=== PATIENT | female | born 1980 | race Caucasian/White ===

== ENCOUNTER → 2023-12-07 06:28 | Outpatient (REF) | payer OTHER, SELFPAY | LOC: HWWDC 06:28 | PROVIDERS: ATTENDING PHYSICIAN Physician Assistant Medical | DX: Z12.31 Encounter for screening mammogram for malignant neoplasm of breast (principal) | CPT/HCPCS: 77063; 77067 ==

== ENCOUNTER → 2024-12-07 06:45 | Outpatient (REF) | payer OTHER, SELFPAY | LOC: HWWDC 06:45 | PROVIDERS: ATTENDING PHYSICIAN Physician Assistant Medical | DX: Z12.31 Encounter for screening mammogram for malignant neoplasm of breast (principal) | CPT/HCPCS: 77063; 77067 ==

== ENCOUNTER 2024-12-24 11:13 | Emergency (ER) | payer OTHER, SELFPAY ==
[2024-12-24 11:19] VITALS: BP 145/80
[2024-12-24 11:40] VITALS: BMI 33.2
--- NOTE | 2024-12-24 11:41 | ED.GENMED ---
History of Present Illness
General
Chief Complaint: Back Pain
Source: patient
Exam Limitations: none
Time Seen by Provider: 12/24/24 11:30
History of Present Illness
History of Present Illness:
44-year-old female presents complaining of worsening lower back pain that radiates down the right leg. She has been having pain since the beginning of this month. She was seen in urgent care, x-rays were performed which were negative. She was
initially placed on gabapentin and steroid however this did not help. She has been on her second round of steroid and is also taking muscle relaxers. She is also doing physical therapy without relief. The pain is mostly severe in the back and is
associated with right leg pain. She notes she is constipated but no incontinence of her stool or bladder. She notes some paresthesias to the right lateral leg but no perianal anesthesia. She is ambulatory. She did drive herself here. She is in
tears because of her pain
Phy Exam
Physical Exam
Physical Exam:
General: Well-appearing female in no acute respiratory distress
HEENT: Normal cephalic atraumatic
Heart: Regular rate and rhythm
Lungs: Clear no wheeze
Musculoskeletal exam: Patient is tender to the midline of the lower lumbar spine. She is ambulatory
Neurologic exam: Alert walking with a guarded gait. Bilateral patellar and Achilles reflexes 2+. Good strength to lower extremities bilaterally she has slight decrease sensation to the lateral aspect of the right thigh
Skin is warm no rash
Course
Orders/Labs/Results
Orders:
Orders
12/24/24 11:40
Ketorolac [Toradol] 30 mg IV NOW STA
diazePAM [Valium Injection] 5 mg IV NOW STA
Vital Signs
Initial and Last Documented VS:
Initial Vital Signs
Temp Pulse Resp BP Pulse Ox
98.4 F 84 18 145/80 97
12/24/24 11:19 12/24/24 11:19 12/24/24 11:19 12/24/24 11:19 12/24/24 11:19
Last Documented Vital Signs
Temp Pulse Resp BP Pulse Ox
98.4 F 84 18 145/80 97
12/24/24 11:19 12/24/24 11:19 12/24/24 11:19 12/24/24 11:19 12/24/24 11:43
MDM/Problems Addressed
Differential Diagnosis Includes:
Low back pain with pain radiating down the right leg. I suspect radiculopathy. She had negative x-rays done several weeks ago. No red flags to suggest cauda equina. No fever to suggest infectious source. Will try Valium and Toradol. No
emergent need for MRI at this time
*Pulse Oximetry
SaO2: 97
Oxygen Mode of Delivery: Room air
Patient hypoxic: no
*Critical Care Note
Total Time (30-74mins, 75-104mins- exclusive of procedures): Not Applicable
Update Note
Update Note:
Patient was given Toradol here and Valium and is doing better. She is amatory in the hallway. Suspect radiculopathy. She has an appoint with orthopedics in 3 days. Will prescribe medicine for her spasm and pain. Stable for discharge
ED Attending Note
-
Portions of this chart may have been created with voice recognition software.� Occasional wrong word or��sound alike� substitutions may have occurred due to the inherent limitations of voice recognition software.
Discharge Plan
Departure
Patient Disposition: Home (Routine Discharge)
Date of Disposition: 12/24/24
Time of Disposition: 13:29
Patient with high blood pressure during this ER visit?: No
Discharge Problem:
Acute lumbar radiculopathy
Instructions: Radiculopathy (DC)
Prescriptions:
New
diazepam [Valium] 5 mg tablet
5 mg PO TID PRN (Reason: muscle spasm) Qty: 10 0RF
hydrocodone-acetaminophen 5-325 mg tablet
1 tab PO TID PRN (Reason: Pain) Qty: 7 0RF
No Action
ucipzoqv-hin-szry fum-folic ac 1 EACH tablet
1 ea PO DAILY
Referrals:
Tracee Gomez PA-C [Family Provider, Family Practice]
Activity Restrictions/Additional Instructions:
Continue using warm compresses to the back. Use different muscle relaxer as prescribed. You may use prescribed pain medicine sparingly only as needed for severe pain. Follow-up with orthopedics as planned
Interventions
Interventions:
*Risk Screen - Suicide Last Done: 12/24/24 11:43
*General Assessment Last Done: 12/24/24 11:43
ED-Musculoskeletal Assessment Last Done: 12/24/24 11:43
Discharge Date and Time
Print Language: PORTUGUESE
[2024-12-24] MEDS: VALIUM INJECTION 5 MG IV (11:47)
[2024-12-24] MEDS: TORADOL 30 MG IV (11:47)
== END 2024-12-24 13:48 | disposition home or self-care (01) ==
LOC: EMR 11:13
PROVIDERS: EMERGENCY PHYSICIAN Emergency Medicine; FAMILY PHYSICIAN Physician Assistant Medical
DX: M54.16 Radiculopathy, lumbar region (principal)
CPT/HCPCS: 99284; 96374; 96375

== ENCOUNTER 2024-12-27 17:51 | Observation (INO) | payer OTHER, SELFPAY ==
[2024-12-27 09:51] VITALS: BP 159/83
[2024-12-27 10:23] VITALS: BMI 33.9
--- NOTE | 2024-12-27 10:36 | ED.GENMED ---
History of Present Illness
General
Chief Complaint: Bowel Problem
Source: patient
Time Seen by Provider: 12/27/24 10:21
History of Present Illness
History of Present Illness:
44-year-old female presents emergency room complaining of constipation. Has not had a bowel movement for a week. She first noticed constipation about 2 weeks ago. She has been experiencing exacerbation of low back pain with some tingling going
down her right leg to her knee. No focal weakness. No numbness or tingling in the lower part of her leg. She denies any numbness or paresthesias in the perineum. She is urinating normally. She has some abdominal discomfort as well as nausea.
No vomiting. She has had very decreased appetite due to the constipation.
Phy Exam
Physical Exam
Physical Exam:
General: Awake, Alert, Oriented X3. No acute distress.
Vitals: unremarkable
Head: Atraumatic
Eyes: Pupils equal, EOMI
Throat: Airway intact, no exudates
Neck: Trachea midline
Lungs: Clear and equal b/l
Heart: Regular rate, no murmurs
Abd: Soft, Nontender, No pulsatile mass
Rectal: No saddle anesthesia, rectal tone intact
Neuro: Cranial nerves intact, muscle strength equal bilaterally, cerebellar exam normal
Skin: Warm, dry, no rash
Extremities: pulses equal b/l, no edema
Course
Orders/Labs/Results
Orders:
Orders
12/27/24 10:35
CT Abd/pel W Iv And Oral Contr Urgent
Comment:
Reason For Exam: constipation, back pain
0.9% Sodium Chloride 1000 ml [Nss] 1,000 ml IV BOLUS
Iohexol [Omnipaque] See Protocol PO NOW STA
Ondansetron Injectable [Zofran] 4 mg IV NOW STA
12/27/24 10:37
Bladder Scan- Treatment ONCE
12/27/24 11:01
Complete Blood Count/With Diff Urgent
Comprehensive Metabolic Panel Urgent
HCG, Serum Qualitative Screen Urgent
Comment: ADD ON
Lipase Urgent
Urinalysis Reflex To Culture Urgent
Date Specimen was Collected: 12/27/24
Time Specimen was Collected: 10:57
Urine Microscopic Reflex Cult Urgent
Urine Culture Urgent
SHANEKA Source: U
Specimen Description:
Date Specimen was Collected: 12/27/24
Time Specimen was Collected: 10:57
12/27/24 11:53
Add On- LAB Stat
Tests Added?: hcg
12/27/24 15:51
HYDROmorphone [Dilaudid] 0.5 mg IV NOW STA
Lactulose [Duphalac/Chronulac] 20 grams PO NOW STA
Abnormal Lab Results
12/27/24
11:01
Abs Immat Gran (auto) 0.1 H 10^3/uL
(0-0.05)
Absolute Monos (auto) 0.8 H 10^3/uL
(0.1-0.6)
Immature Gran % 0.7 H %
(0-0.5)
Urine Ketones 2+ A
(Negative)
Ur Occult Blood Reflex 2+ A
(Negative)
Urine Bacteria (Reflex) Many A
(Negative)
Urine Albumin (Reflex) 1+ A
(Neg - Trace)
12/27/24 11:01
12/27/24 11:01
Vital Signs
Initial and Last Documented VS:
Initial Vital Signs
Temp Pulse Resp BP Pulse Ox
98 F 104 16 159/83 98
12/27/24 09:51 12/27/24 09:51 12/27/24 09:51 12/27/24 09:51 12/27/24 09:51
Last Documented Vital Signs
Temp Pulse Resp BP Pulse Ox
97.9 F 70 20 121/62 98
12/27/24 14:00 12/27/24 14:00 12/27/24 14:00 12/27/24 14:00 12/27/24 14:00
MDM/Problems Addressed
Differential Diagnosis Includes:
Constipation from medications, constipation from inadequate fluid or fiber intake, disc herniation causing bowel dysfunction
MDM/Problems Addressed:
Patient presents with back pain as well as constipation. Her abdominal exam is benign. There is no stool in the rectal vault. He did appear to be normal rectal tone however. CT of the abdomen pelvis obtained as the patient's overall presentation
suggested something more than functional constipation. Unfortunately the CT shows lesions in the liver and skeletal system. In particular she has a lesion at the L2 vertebrae with a pathologic fracture and retropulsion as well as soft tissue
extension. Concerned this may be causing some level of bowel dysfunction. Will hospitalize the patient for further testing and evaluation as well as pain management.
I did discuss CT findings with the patient. I did explain that cannot tell with any amount of certainty what these lesions are but given her history of melanoma that is my primary concern. She will need a tissue sample to know for sure.
*Radiology
Radiology exam reviewed: radiology read reviewed
*Pulse Oximetry
SaO2: 98
Oxygen Mode of Delivery: Room air
Patient hypoxic: no
*Critical Care Note
Total Time (30-74mins, 75-104mins- exclusive of procedures): Not Applicable
ED Attending Note
-
Portions of this chart may have been created with voice recognition software.� Occasional wrong word or��sound alike� substitutions may have occurred due to the inherent limitations of voice recognition software.
Discharge Plan
Departure
Patient Disposition: Admit
Date of Disposition: 12/27/24
Time of Disposition: 15:52
Admit to: Med/Surg
Presentation/result/management discussed w/ accepting MD/DO: Hospitalist
Condition: Fair
Discharge Problem:
Constipation, Mass of spine, Pathologic fracture of lumbar vertebra
Prescriptions:
No Action
rckrmrxw-mep-buoj fum-folic ac 1 EACH tablet
1 ea PO DAILY
diazepam [Valium] 5 mg tablet
5 mg PO TID PRN (Reason: muscle spasm) Qty: 10 0RF
hydrocodone-acetaminophen 5-325 mg tablet
1 tab PO TID PRN (Reason: Pain) Qty: 7 0RF
Referrals:
UNKNOWN - PT DOES,NOT KNOW [Unknown Provider]
Interventions
Interventions:
*Risk Screen - Suicide Last Done: 12/27/24 09:51
*General Assessment Last Done: 12/27/24 10:22
*Neglect/Abuse Screening Last Done: 12/27/24 09:51
*ED- Fall Risk Assessment Last Done: 12/27/24 10:22
*ED COVID-19 Vaccine History Last Done: 12/27/24 10:21
*ED Influenza Vaccine History Last Done: 12/27/24 10:21
GK-Jivvew-Sqzvwxgkdy Assessment Last Done: 12/27/24 10:28
Discharge Date and Time
Print Language: SALVADOREAN
[2024-12-27] MEDS: OMNIPAQUE 50 ML PO (10:49)
[2024-12-27] MEDS: ZOFRAN 4 MG IV (10:49)
[2024-12-27] MEDS: NSS 1000 IV (10:51)
[2024-12-27 11:10] LABS: Urine Character Clear (Clear)
[2024-12-27 11:11] LABS: Hematocrit 39.6 % (37.0-47.0); Hemoglobin 13.5 g/dL (12.0-16.0); Mean Corp Hgb Conc. 34.1 g/dL (33.0-37.0); Mean Corpuscular Volume 89.4 fL (81.0-99.0); Nucleated Red Blood Cells % 0 %; Platelet Count 314 10^3/uL (130-400); Red Cell Dist. Width 12.0 % (11.5-14.5)
[2024-12-27 11:19] LABS: Urine Squamous Cell >30 /LPF (Few)
[2024-12-27 11:37] LABS: Urine Red Blood Cell 0-2 /HPF (0-2)
[2024-12-27 11:55] LABS: ALT (SGPT) 20 U/L (0-35); AST (SGOT) 19 U/L (14-36); Albumin 4.1 g/dl (3.5-5.0); Alkaline Phosphatase 59 U/L (38-126); Blood Urea Nitrogen 13 mg/dl (7-17); Calcium 9.5 mg/dl (8.4-10.2); Carbon Dioxide 26 mmol/L (22-30); Chloride 101 mmol/L (98-107); Estimated Creatinine Clearance > 125 ml/min; Glucose 96 mg/dl (70-99); Lipase 34 U/L (23-300); Potassium 3.9 mmol/L (3.5-5.1); Sodium 135 mmol/L (135-145); Total Protein 7.4 g/dl (6.3-8.2); eGFR > 60.00
[2024-12-27 13:02] LABS: HCG, Serum Qualitative Screen Negative
[2024-12-27 14:00] VITALS: BP 121/62
[2024-12-27] MEDS: DUPHALAC/CHRONULAC 20 GRAMS PO (16:21)
[2024-12-27] MEDS: DILAUDID 0.5 MG IV (16:21)
--- NOTE | 2024-12-27 16:37 | HPS.HSE ---
Addendum entered and electronically signed by Nerissa Amaya MD 12/27/24 17:36:
*patient without significant mid-spine tenderness on exam, mainly paraspinal on left
sensation grossly in tact
rectal exam done by ER physician normal
Original Note:
Family Physician
-
Family Physician: Tracee Gomez
Chief Complaint
-
constipation and back pain
History of Present Illness
Ms. Tracee Lundy is a 44 yo woman with distant hx melanoma, anxiety presents to the ER with constipation, low back pain with numbness/tingling going down right leg to knee.
Patient has had back pain over the past month not responsive to steroids course, gabapentin, Lidocaine patch. She has intermittently taken Motrin with some relief. She has some numbness/tingling radiating down right leg. She is constipated over
past 1-2 weeks. No urinary changes. No weakness in legs. No saddle anesthesia.
No fevers/chills. No chest pain or shortness of breath. She has felt nauseated, no vomiting. No lower extremity swelling. No rash.
Medical History
Past Medical History
Past Medical History: Reports Other (melanoma, anxiety )
Past Surgical History: Reports Other
Social History
Tobacco: Non-smoker
Alcohol: None
Family History
Family History: Not pertinent
Allergies / Home Medications
Allergies reflects when Allergies were last updated in [employer].
Home Medications with original date entered in [employer]
Allergy/Medication List:
Allergies
Allergy/AdvReac Type Severity Reaction Status Date / Time
No Known Allergies Allergy Verified 12/27/24 09:51
Home Medications
cayddvvanfyg-hqvflwfv-saem fumarate 7.5 mg-folic acid 400 mcg tablet 1 ea PO DAILY 07/01/20
diazepam 5 mg tablet (Valium) 5 mg PO TID PRN muscle spasm #10 tabs 12/24/24
hydrocodone 5 mg-acetaminophen 325 mg tablet 1 tab PO TID PRN Pain #7 tabs 12/24/24
*awaiting med rec
patient was completing steroid course and takes Lexapro 20mg daily
Review of Systems
-
History Source: Patient
A 12 point ROS was completed and negative except as noted: Yes
Physical Exam
Vital Signs
Vital Signs
Temp Pulse Resp BP Pulse Ox
97.9 F 70 20 121/62 98
12/27/24 14:00 12/27/24 14:00 12/27/24 14:00 12/27/24 14:00 12/27/24 14:00
Physical Exam
General: No Apparent Distress
HEENT: PERRLA
Respiratory: Clear; No Wheezes
Cardiac: S1/S2 and Regular Rhythm
GI: Soft and Non Tender
Musculoskeletal: No Edema and Other (mid spine tenderness and paraspinal left )
Skin: Warm and Dry; No Rash
Neuro: AO x 3 and Other (5/5 muscle strength lower extremity)
Psych: Calm
Laboratory Results
-
12/27/24 11:01
12/27/24 11:01
Laboratory Results
Total Bilirubin 0.6 mg/dl (0.2-1.3) 12/27/24 11:01
AST 19 U/L (14-36) 12/27/24 11:01
ALT 20 U/L (0-35) 12/27/24 11:01
Alkaline Phosphatase 59 U/L (38-126) 12/27/24 11:01
Lipase 34 U/L (23-300) 12/27/24 11:01
Data Reviewed
-
Diagnostic Radiology: Report Reviewed by me
Lab Data: Labs Reviewed by me
Impression/Plan
-
Ms. Tracee Lundy is a 44 yo woman with distant hx melanoma, anxiety presents to the ER with constipation, low back pain with numbness/tingling going down right leg to knee.
Triage VS: T 98, P 104, RR 16, BP 159/83, SpO2 98%
LABS: WBC 10.5, Hg 13.5, PLT 314, Na 135, K+ 3.9, CO2 26, Cr 0.6, Glucose 96, liver enzymes WNL
CT A/P
IMPRESSION:
New findings highly suspicious for metastatic disease.
Solid pulmonary nodules in the right middle lobe and right lower lobe.
Multiple hypoechoic liver masses.
Expansile soft tissue mass with destruction of the anterior right eighth rib.
Moderate pathologic compression fracture of L2 with right lateral paravertebral extraosseous soft tissue, and possible soft tissue extension into the right neural foramen and spinal canal. Retropulsion of the posterior cortex of L2 also appears to
contribute to a degree of spinal canal stenosis.
MAR: Lactulose, Dilaudid, IVF
New finding concern for metastatic disease with liver, lung and bone mets
Pathologic compression fracture L2
Back pain
-admit to observation, med/surg
-discussed with IR, NPO after MN for biopsy of right eigth rib
-MRI Lumbar with and without contrast tomorrow AM
-pain control with PRN IV Dilaudid; start pills when eating food
-continue last day Prednisone taper tomorrow
-patient states Gabapentin and lidocaine patch not helpful in past - can discuss higher dosing
-Hematology/Oncology consult
Constipation
-clears
-milk of molasses enema x 1; Miralax BID, colace BID
Anxiety
-MANAGER BUILDING Lexapro
DVT PPx SCD
FULL CODE
76 MINUTES spent on patient care
[2024-12-27 18:59] VITALS: BP 121/70
--- NOTE | 2024-12-27 19:00 | PTCARENOTE ---
Marvin RN states he tubed report to the floor.
[2024-12-27 19:30] VITALS: BP 125/80
[2024-12-27 19:42] VITALS: BMI 33.4
[2024-12-27] MEDS: MIRALAX 17 GRAMS PO (20:33)
[2024-12-27] MEDS: NEURONTIN 300 MG PO (20:34)
[2024-12-27] MEDS: COLACE 100 MG PO (20:34)
[2024-12-27] MEDS: TYLENOL 1000 MG PO (21:58)
[2024-12-28] VITALS (8 sets, daily range): BP systolic 65–135; BP diastolic 68–80
[2024-12-28] MEDS: TORADOL 10 MG IV (03:52)
[2024-12-28] MEDS: LEXAPRO 20 MG PO (07:38)
[2024-12-28] MEDS: COLACE 100 MG PO ×2 (07:38→22:38)
[2024-12-28] MEDS: MIRALAX PO (07:39)
[2024-12-28] MEDS: DELTASONE 20 MG PO (07:39)
[2024-12-28] MEDS: D5LR 1000 IV ×2 (08:37→22:41)
[2024-12-28] MEDS: ZOFRAN 4 MG IV (08:37)
[2024-12-28 08:49] LABS: Hematocrit 38.9 % (37.0-47.0); Hemoglobin 13.3 g/dL (12.0-16.0); Mean Corp Hgb Conc. 34.2 g/dL (33.0-37.0); Mean Corpuscular Volume 89.2 fL (81.0-99.0); Platelet Count 282 10^3/uL (130-400); Red Cell Dist. Width 11.9 % (11.5-14.5)
[2024-12-28 09:00] LABS: INR 1.21; PT 15.6 Sec (11.4-14.6)
--- NOTE | 2024-12-28 09:00 | W.PN.HOSP.TC ---
Addendum entered and electronically signed by Nerissa Amaya MD 12/28/24 14:28:
discussed case briefly with Dr. Singer who will evaluate CT, we are awaiting MRI
meanwhile will start higher dose Decadron 4mg IV q 6 hours
Original Note:
Today's Communication/Plan
-
NPO for IR biopsy
MRI Lumbar Spine
bowel regimen
Assessment / Plan
Assessment / Plan
Ms. Tracee Lundy is a 44 yo woman with distant hx melanoma, anxiety presents to the ER with constipation, low back pain with numbness/tingling going down right leg to knee.
CT A/P
IMPRESSION:
New findings highly suspicious for metastatic disease.
Solid pulmonary nodules in the right middle lobe and right lower lobe.
Multiple hypoechoic liver masses.
Expansile soft tissue mass with destruction of the anterior right eighth rib.
Moderate pathologic compression fracture of L2 with right lateral paravertebral extraosseous soft tissue, and possible soft tissue extension into the right neural foramen and spinal canal. Retropulsion of the posterior cortex of L2 also appears to
contribute to a degree of spinal canal stenosis.
New finding concern for metastatic disease with liver, lung and bone mets
Pathologic compression fracture L2
Back pain
-admit to observation, med/surg
-discussed with IR, NPO after MN for biopsy of right eigth rib
-MRI Lumbar with and without contrast
-pain control with PRN IV Dilaudid; start pills when eating food
-last day prednisone
-Gabapentin 300mg PO qhs
-Hematology/Oncology consult
Constipation
-clears
-milk of molasses enema x 1unsuccessful; Miralax BID, colace BID
Anxiety
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
DVT PPx SCD
FULL CODE
76 MINUTES spent on patient care
Anticipated Discharge: 24 - 48 hours
Subjective/Interval History
-
Date of Service: December 28, 2024
no bowel movement overnight
pain presents, has heating pack on
Objective Data
-
Labs:
Laboratory Results
12/28/24
08:31
WBC 8.1
Hgb 13.3
Hct 38.9
Plt Count 282
PT Pending
INR Pending
Sodium Pending
Potassium Pending
Chloride Pending
Carbon Dioxide Pending
BUN Pending
Creatinine Pending
Glucose Pending
Calcium Pending
Vital Signs:
Vital Signs
Temp Pulse Resp BP Pulse Ox
98.2 F 80 16 123/80 97
12/28/24 07:00 12/28/24 07:00 12/28/24 07:00 12/28/24 07:00 12/28/24 07:00
I&O
12/27/24 12/28/24 12/29/24
06:59 06:59 06:59
Intake Total 240 / 240
Balance 240 / 240
Review of Systems
-
History Source: Patient
All other systems: Reviewed and negative
Physical Exam
-
General: No Apparent Distress
HEENT: PERRLA
Respiratory: Clear to Auscultation; Negative Wheezes
Cardiac: Regular Rhythm and S1/S2
GI: Soft and Nontender
Musculoskeletal: No Edema
Skin: Warm and Dry; Negative Rash
Neuro: AO x 3
Psych: Calm
Data Reviewed
-
Diagnostic Radiology: Report Reviewed by me
Labs: Labs Reviewed by me
--- NOTE | 2024-12-28 09:55 | CON.ONC ---
Documented by User: Tahir Rutherford MD, Resident 12/28/24 15:28
Consultation
-
Date Consultation Requested: 12/27/24
Date Consultation Performed: 12/28/24
Requesting Provider: Dr. Amaya
Performing Provider: Dr. Rutherford; Dr. Galvan
Reason for Consultation: Concern for metastatic disease
Impression
Impression
#Imaging findings concerning for metastatic disease
#Possible spinal cord compression 2/2 L2 compression fx
Recent LBP w/ radiation down R leg, constipation, and rib pain in setting of past hx of LUE malignant melanoma s/p surgical resection (2019)
CTAP (12/27/24)
- L2 compression fx w/ retropulsion of posterior cortex of L2 and R lateral paravertebral extraosseous soft tissue
- multiple liver masses
- pulmonary nodules in RLL and RML
- soft tissue mass w/ destruction of R 8th rib
Plan
Plan
#Imaging findings concerning for metastatic disease
#Possible spinal cord compression 2/2 L2 compression fx
IR rib biopsy pending. Await pathology results.
Neurosurgery consulted (Dr. Singer)
Per neurosurgery, Dexamethasone 4mg IV q6h
MRI Lumbar w/ and w/o pending
MRI brain w/ and w/o pending
Outpatient follow-up for suspected metastatic disease, pending pathology result
Patient History
History of Present Illness
Patient is a 44-year-old female with past medical history of left upper extremity malignant melanoma (2019) s/p surgical resection and sentinel lymph node excisional biopsy by Dr. Whitehead who presented to the [facility] ED yesterday (12/27) with constipation
and back pain. Patient has been experiencing low back pain for 5 to 6 weeks (end of October) constipation for 1 to 2 weeks. Last BM approximately 1 week ago. These symptoms are also accompanied by intermittent nausea, chills, and decreased
appetite. Patient also experienced right-sided rib pain in mid October, which she attributed to a muscle strain during Pilates at the time. Patient's back pain was not responsive to gabapentin, steroids, or lidocaine patch. Mildly responsive to
Motrin. Pathology following surgery for malignant melanoma in 2019 showed resection margins negative for melanoma and left axillary sentinel lymph node negative for tumor. After surgical resection of LUE malignant melanoma in 2019, patient followed
up with Dr. Whitehead for approximately 1 year, with no subsequent concerning findings. Patient has not had any hospitalizations or health problems overall since then. Patient denies fever, fatigue, weight loss, saddle anesthesia, urinary incontinence,
bowel incontinence, chest pain, cough, hemoptysis, vomiting, diarrhea, abdominal pain, jaundice, headache, confusion, or seizures. Family history of cancer includes the following: Uterine (mother) and breast cancer (aunts). Denies history of
hematologic issues. CTAP performed this admission shows soft tissue mass in the right eighth rib, multiple hepatic lesions, pulmonary nodules x 4, and extraosseous soft tissue mass near L2 with compression fracture of L2 with retropulsion and
concern for cord compression. Labs unremarkable this admission.
Past-Medical/Surgical History
Malignant melanoma s/p surgical resection (2019)
Thyroid nodule s/p biopsy with benign finding (2020)
Patient Medication
�Medication �Instructions �Recorded �Confirmed �Last Taken �Type
[id number]-[id number]-[id number] 1 ea PO DAILY Supplement 07/01/20 07/01/20 07/01/20 History
fumarate 7.5 mg-folic acid 400 mcg
tablet
diazepam 5 mg tablet (Valium) 5 mg PO TID PRN muscle spasm #10 12/24/24 Unknown Rx
tabs
hydrocodone 5 mg-acetaminophen 325 1 tab PO TID PRN Pain #7 tabs 12/24/24 Unknown Rx
mg tablet
Active Medications
Generic Name Dose Route Start Last Admin
Trade Name Freq PRN Reason Stop Dose Admin
Acetaminophen 1,000 mg 12/27/24 19:33 12/27/24 21:58
Acetaminophen 325 Mg Tablet PO 01/24/25 19:32 1,000 mg
Q8HPRN PRN Administration
mild pain/LOPEZ/temp> 100.4F
Bisacodyl 10 mg 12/27/24 19:33
Bisacodyl 10 Mg Rectal Suppository RECTAL 01/24/25 19:32
[id number] PRN
constipation
Docusate Sodium 100 mg 12/27/24 20:00 12/28/24 07:38
Docusate Sodium 100 Mg Capsule PO 01/24/25 19:59 100 mg
BID RAKESH Administration
Escitalopram Oxalate 20 mg 12/28/24 08:00 12/28/24 07:38
Escitalopram 20 Mg Tablet PO 01/25/25 07:59 20 mg
DAILY RAKESH Administration
Gabapentin 300 mg 12/27/24 22:00 12/27/24 20:34
Gabapentin 300 Mg Capsule PO 01/24/25 21:59 300 mg
HS RAKESH Administration
Hydromorphone HCl 0.5 mg 12/27/24 19:33
Hydromorphone 0.5 Mg/0.5 Ml Syringe IV 01/10/25 19:32
Q3HPRN PRN
severe pain
Dextrose/Lactated Ringer's 1,000 mls @ 80 mls/hr 12/28/24 09:00 12/28/24 08:37
D5lr IV 1,000 mls
.[id number] RAKESH Administration
Ketorolac Tromethamine 15 mg 12/28/24 09:53
Ketorolac 15 Mg/Ml Injection IV 01/02/25 09:52
Q6HPRN PRN
moderate pain
Magnesium Citrate 300 ml 12/28/24 09:10
Magnesium Citrate Oral Solution 300 Ml Bottle PO
ONCE PRN
constipation
Ondansetron HCl 4 mg 12/28/24 08:25 12/28/24 08:37
Ondansetron 4 Mg/2 Ml Vial IV 01/25/25 08:24 4 mg
Q6HPRN PRN Administration
NAUSEA/VOMITING
Polyethylene Glycol 17 grams 12/27/24 20:00 12/28/24 07:39
Polyethylene Glycol Powder 17 Grams Packet PO 01/24/25 19:59 Not Given
BID RAKESH
Review of Systems
-
History Source: Patient
Constitutional: Denies Fever, Weight Loss, Fatigue, Chills or Weakness
Respiratory: Denies Cough, Hemoptysis or Trouble Breathing
Cardiac: Denies Chest Pain
GI: Reports Constipated; Denies Abdominal Pain, Nausea, Vomiting or Diarrhea
Musculoskeletal: Reports Other (Low back pain)
Neuro: Denies Headache, Seizures or Other (Denies saddle anesthesia; endorses 'sciatica pain' in right leg to knee)
Physical Exam
-
General: Well Developed, Well Nourished, No Apparent Distress and Conversant
Cardiology: S1 and S2
Pulmonary: Clear
GI: Soft and Other (Nontender); Negative Distended
Musculoskeletal: No Cyanosis and No Edema
Extremities: Pulses Present; Negative Phlebitic Signs
Neurology: Non Focal
Psych: Calm
Labs
Lab Results
WBC 8.1 10^3/uL (4.8-10.8) 12/28/24 08:31
RBC 4.36 10^6/uL (4.20-5.40) 12/28/24 08:31
Hgb 13.3 g/dL (12.0-16.0) 12/28/24 08:31
Hct 38.9 % (37.0-47.0) 12/28/24 08:31
MCV 89.2 fL (81.0-99.0) 12/28/24 08:31
MCH 30.5 pg (27.0-31.0) 12/28/24 08:31
MCHC 34.2 g/dL (33.0-37.0) 12/28/24 08:31
RDW 11.9 % (11.5-14.5) 12/28/24 08:31
Plt Count 282 10^3/uL (130-400) 12/28/24 08:31
MPV 9.1 fL (7.4-10.4) 12/28/24 08:31
Abs Immat Gran (auto) 0.1 10^3/uL (0-0.05) H 12/27/24 11:01
Absolute Neuts (auto) 6.2 10^3/uL (1.4-6.5) 12/27/24 11:01
Absolute Lymphs (auto) 3.4 10^3/uL (1.2-3.4) 12/27/24 11:01
Absolute Monos (auto) 0.8 10^3/uL (0.1-0.6) H 12/27/24 11:01
Absolute Eos (auto) 0.0 10^3/uL (0-0.7) 12/27/24 11:01
Absolute Basos (auto) 0.0 10^3/uL (0-0.2) 12/27/24 11:01
Immature Gran % 0.7 % (0-0.5) H 12/27/24 11:01
Neutrophils % 59.1 % (42.2-75.2) 12/27/24 11:01
Lymphocytes % 32.4 % (20.5-51.1) 12/27/24 11:01
Monocytes % 7.1 % (1.7-9.3) 12/27/24 11:01
Eosinophils % 0.4 % (0-6) 12/27/24 11:01
Basophils % 0.3 % (0-2) 12/27/24 11:01
Creatinine 0.6 mg/dL (0.6-1.0) 12/27/24 11:01
Vital Signs
Vital Signs
Temp Pulse Resp BP Pulse Ox
98.2 F 80 16 123/80 97
12/28/24 07:00 12/28/24 07:00 12/28/24 07:00 12/28/24 07:00 12/28/24 08:33

Documented by User: Bry Galvan MD 12/28/24 16:03
Plan
Plan
#Imaging findings concerning for metastatic disease
#Possible spinal cord compression 2/2 L2 compression fx
IR rib biopsy pending. Await pathology results.
Neurosurgery consulted (Dr. Singer)
Per neurosurgery, Dexamethasone 4mg IV q6h
MRI Lumbar w/ and w/o pending
MRI brain w/ and w/o pending
Outpatient follow-up for suspected metastatic disease, pending pathology result
Oncology Addendum:
Patient seen and evaluated and agree w/ resident note and plan as outlined
-h/o melanoma now w/ CT imaging revealing solid pulmonary nodules RML and RLL, multiple liver masses, soft tissue mass with destruction of right 8th rib, and moderate pathologic compression fracture of L2 with right lateral paravertebral
extraosseous soft tissue, and possible soft tissue extension into the right neural foramen and spinal canal
-these radiographic findings were discussed w/patinet in detail
-neurosugery consulted regarding L2 findings on CT
-MRI spine pending
-steroids started - Dex 4mg q6
-for IR guided biopsy right 8th rib
-await pathology
Will continue to follow with you.
[2024-12-28] MEDS: TORADOL 15 MG IV ×2 (10:13→16:38)
[2024-12-28 10:27] LABS: Blood Urea Nitrogen 12 mg/dl (7-17); Calcium 9.6 mg/dl (8.4-10.2); Carbon Dioxide 30 mmol/L (22-30); Chloride 101 mmol/L (98-107); Estimated Creatinine Clearance > 125 ml/min; Glucose 89 mg/dl (70-99); Magnesium 2.0 mg/dl (1.6-2.3); Potassium 4.5 mmol/L (3.5-5.1); Sodium 135 mmol/L (135-145); eGFR > 60.00
[2024-12-28 10:47] LABS: TSH 0.74 uIU/ml (0.47-4.68)
[2024-12-28 11:06] LABS: Vitamin B12 507 pg/ml (239-931)
--- NOTE | 2024-12-28 11:41 | CM ---
Reviewed the chart notes and spoke with the patient and her spouse at the bedside. The patient resides with her spouse in a two story home with six steps to enter. The patient reports no DME/VN/SNF in the past. The patient confirmed her pharmacy
of choice is [facility] in [place]. CM continues to be available to patient/family and is monitoring medical plan for needs at discharge.
Plan: Discharge to home when medically stable. No needs anticipated at this time.
[2024-12-28] MEDS: DECADRON 4 MG IV ×2 (16:32→22:41)
[2024-12-28] MEDS: PROTONIX 40 MG PO (16:32)
--- NOTE | 2024-12-28 18:57 | CON.NS ---
Consultation
-
Date/Time Consultation Performed: 12/28/2024, 1900
Performing Provider: Lucrecia
Reason for Consultation: L2 pathologic fracture
Chief Complaint
History of Present Illness
This is a neurosurgical consultation on a 44-year-old female who had presented to the emergency room with symptoms of constipation, low back pain, numbness and tingling down the right leg to the knee. Symptoms have been ongoing for the past month,
and she had tried gabapentin, steroids, lidocaine patch without significant relief. She ultimately presented to the emergency room, where she had a CT of the abdomen/pelvis that demonstrated multiple lesions, suspicious for metastatic disease. She
had lesions that were notable in her liver, solid pulmonary nodules in right middle, and right lower lobe, lesions involving the right eighth rib. She has a history of melanoma. She ultimately underwent evaluation by oncology, who recommended MRI
of the lumbar spine, neurosurgery consultation for evaluation of cord compression.
Patient is status post biopsy of the right rib lesion today.
Patient seen and examined. She offers additional history that she does not recall any specific inciting event that caused the back pain, she initially thought that it was a pulled muscle. She thought it was incited by Pilates.
She denies any numbness or tingling in the right lower extremity. She reports that the pain is predominantly in the low back, and radiates down the anterior aspect of her thigh terminating at just above the knee, and intermittently into the groin.
She denies any bladder incontinence, and reports that she has had no difficulty with urinating She has had constipation, and reports that she has not had a bowel movement in approximately a week.
Review of Systems
-
10 point review systems including constitutional, ENT, cardiovascular, respiratory, GI, , Endo logic, hematologic, neurologic, musculoskeletal was performed, and was negative except for as stated in HPI.
Medication and Allergies
Home Medications
Home Medications
�Medication �Instructions �Recorded
bjzeliykaglm-tslgmajb-lcle 1 ea PO DAILY Supplement 07/01/20
fumarate 7.5 mg-folic acid 400 mcg
tablet
diazepam 5 mg tablet (Valium) 5 mg PO TID PRN muscle spasm #10 12/24/24
tabs
hydrocodone 5 mg-acetaminophen 325 1 tab PO TID PRN Pain #7 tabs 12/24/24
mg tablet
Allergies
Allergies
Allergy/AdvReac Type Severity Reaction Status Date / Time
No Known Allergies Allergy Verified 12/27/24 09:51
Physical Exam
-
Exam:
Awake, alert, no apparent distress.
Pupils are equal and reactive.
Extract movements are full without nystagmus.
Tongue is midline.
Motor: 5/5 strength bilaterally in upper and lower extremities in all muscle groups.
Sensation to light touch is intact in bilateral upper and lower extremities.
Head is normocephalic atraumatic
Neck is supple
Cardiac: regular rate
Breathing nonlabored
Abdomen is soft
Extremities are warm
Most of your stenosis is seen as abdomen/pelvis CT performed in 12/27/2024 at approximately 1:30 PM was reviewed. There is evidence of L2 compression fracture with mild retropulsion noted, and focal kyphotic deformity noted. There is also a
hypodense lesion noted within the L3 anterior vertebral body. On axial cuts there is evidence of destruction of the right aspect of the vertebral body, right transverse process and pedicle.
Problems
-
Problem Status Onset Code
Pathologic fracture of lumbar vertebra Acute M84.48XA
Mass of spine Acute M89.8X8
Constipation Acute K59.00
Assessment / Plan
-
This is a 44-year-old female who presents after severe back pain, right lower extremity radiculopathy, consistent with L2 radiculopathy. Imaging demonstrates pathologic L2 fracture with retropulsion, in setting of multiple other lesions noted,
suspicious for metastatic disease, including pulmonary nodules, liver lesions, liver lesions.
She is status post rib biopsy today by interventional radiology. She is scheduled for an MRI of the brain with and without contrast as well, in addition to an MRI of the lumbar spine with and without contrast.
Agree with MRI of the lumbar spine with and without contrast.
Recommend LSO brace when patient is ambulatory, for external/mechanical support.
Gabapentin 300 mg TID
Okay to initiate dexamethasone 4 mg q.6 hours, and then ultimately can taper down via Medrol Dosepak as outpatient.
Radiation oncology consultation for radiotherapy to lumbar lesion.
Follow-up pathology.
No indication for imminent neurosurgical intervention, as patient does not have clinical signs or symptoms of cauda equina syndrome/cord compression. Ultimately, will need to treat primary process/likely metastatic carcinoma.
Will follow-up for MRI lumbar spine results.
[2024-12-28] MEDS: MIRALAX 17 GRAMS PO (22:38)
[2024-12-28] MEDS: CITROMA 300 ML PO (22:38)
[2024-12-28] MEDS: NEURONTIN 300 MG PO (22:38)
[2024-12-28] MEDS: MELATONIN 5 MG PO (23:31)
[2024-12-29] MEDS: DECADRON 4 MG IV ×3 (04:59→16:40)
[2024-12-29] MEDS: TORADOL 15 MG IV ×2 (05:11→19:15)
[2024-12-29 07:50] VITALS: BP 142/83
[2024-12-29 08:10] LABS: Blood Urea Nitrogen 11 mg/dl (7-17); Calcium 9.3 mg/dl (8.4-10.2); Carbon Dioxide 29 mmol/L (22-30); Chloride 101 mmol/L (98-107); Estimated Creatinine Clearance > 125 ml/min; Glucose 153 mg/dl (70-99); Magnesium 2.3 mg/dl (1.6-2.3); Potassium 4.6 mmol/L (3.5-5.1); Sodium 135 mmol/L (135-145); eGFR > 60.00
[2024-12-29] MEDS: NEURONTIN 300 MG PO ×2 (08:29→16:40)
[2024-12-29] MEDS: LEXAPRO 20 MG PO (08:29)
[2024-12-29] MEDS: PROTONIX 40 MG PO (08:29)
--- NOTE | 2024-12-29 08:53 | W.PN.HOSP.TC ---
Today's Communication/Plan
-
MRI lumbar spine
Assessment / Plan
Assessment / Plan
Ms. Tracee Lundy is a 44 yo woman with distant hx melanoma, anxiety presents to the ER with constipation, low back pain with numbness/tingling going down right leg to knee.
CT A/P
IMPRESSION:
New findings highly suspicious for metastatic disease.
Solid pulmonary nodules in the right middle lobe and right lower lobe.
Multiple hypoechoic liver masses.
Expansile soft tissue mass with destruction of the anterior right eighth rib.
Moderate pathologic compression fracture of L2 with right lateral paravertebral extraosseous soft tissue, and possible soft tissue extension into the right neural foramen and spinal canal. Retropulsion of the posterior cortex of L2 also appears to
contribute to a degree of spinal canal stenosis.
New finding concern for metastatic disease with liver, lung and bone mets
Pathologic compression fracture L2
Back pain
-admit to observation, med/surg
-now s/p IR guided biopsy
-MRI Lumbar with and without contrast this morning
-pain control with PRN IV Dilaudid; will order oxycodone PRN
-appreciate Oncology consult; appreciate neurosurgery consult
-Gabapentin 300mg PO TID ordered
Constipation
-s/p treatment
-diet advanced
Anxiety
-[employer] Lexapro
DVT PPx SCD
FULL CODE
Anticipated Discharge: Within 24 hours
Subjective/Interval History
-
Date of Service: December 29, 2024
patient seen pre-MRI
she walked to stretcher
she had a BM and had some relief
Objective Data
-
Labs:
Laboratory Results
12/29/24
07:08
Sodium 135
Potassium 4.6
Chloride 101
Carbon Dioxide 29
BUN 11
Creatinine 0.5 L
Glucose 153 H
Calcium 9.3
Vital Signs:
Vital Signs
Temp Pulse Resp BP Pulse Ox
97.9 F 78 20 142/83 99
12/29/24 07:50 12/29/24 07:50 12/29/24 07:50 12/29/24 07:50 12/29/24 07:50
I&O
12/28/24 12/29/24 12/30/24
06:59 06:59 06:59
Intake Total 240 / 240 1680 / 1680
Balance 240 / 240 1680 / 1680
Review of Systems
-
History Source: Patient
All other systems: Reviewed and negative
Physical Exam
-
General: No Apparent Distress
HEENT: PERRLA
Respiratory: Clear to Auscultation; Negative Wheezes
Cardiac: Regular Rhythm and S1/S2
GI: Soft and Nontender
Musculoskeletal: No Edema
Skin: Warm and Dry; Negative Rash
Neuro: AO x 3
Psych: Calm
Data Reviewed
-
Diagnostic Radiology: Report Reviewed by me
Labs: Labs Reviewed by me
[2024-12-29] MEDS: MIRALAX PO (11:23)
[2024-12-29] MEDS: COLACE PO (11:23)
--- NOTE | 2024-12-29 12:57 | W.PN.ONC2 ---
Today's Communication / Plan
-
Ok for discharge with outpt rad-onc, med-onc follow up.
Impression
Impression
#Imaging findings concerning for metastatic disease
#Possible spinal cord compression 2/2 L2 compression fx
Recent LBP w/ radiation down R leg, constipation, and rib pain in setting of past hx of LUE malignant melanoma s/p surgical resection (2019)
CTAP (12/27/24)
- L2 compression fx w/ retropulsion of posterior cortex of L2 and R lateral paravertebral extraosseous soft tissue
- multiple liver masses
- pulmonary nodules in RLL and RML
- soft tissue mass w/ destruction of R 8th rib
Plan
Plan
#Imaging findings concerning for metastatic disease
#Possible spinal cord compression 2/2 L2 compression fx
MRI brain without VAULT ATTENDANT metastases, T1 marrow enhancement noted. No cytopenias to suggest infiltrative procees.
MRI lumbar spine with Pathologic L2 compression fracture with extensive extraosseous tumor spread into the right paraspinal soft tissues, right neural foramen and epidural space.
IR rib biopsy pending. Await pathology results. will arrange oncology follow-up to review and discuss next steps.
Neurosurgery consulted (Dr. Singer). no role for emergent surgery without CIS symptoms.
reviewed with radiation-oncology, Dr Bee who will arrange urgent out-pt consultation for 12/31 to expedite radiation to L2 lesion. her office will contact pt tuesday am.
started on Dexamethasone 4mg IV q6h. Discharge on Dex 2 mg q8hrs which can be tapered after radiation started.
bowel regimen on discharge to help with constipation. reviewed alarming symptoms to monitor for including fecal or urine incontinence, urine retention, worsening paresthesias, LE motor deficits.
Subjective/Objective
Chief Complaint
spinal lesion
Subjective
pt sitting up in chair. She is feeling Ok today. she had bowel movement last night. No worsening pain or paresthesias. Reviewed MRI lumbar spine, brain with pt and at bedside.
Vital Signs:
Vital Signs
Temp Pulse Resp BP Pulse Ox
97.9 F 78 20 142/83 99
12/29/24 07:50 12/29/24 07:50 12/29/24 07:50 12/29/24 07:50 12/29/24 07:50
Lab Results:
Laboratory Data
WBC 8.1 10^3/uL (4.8-10.8) 12/28/24 08:31
Hgb 13.3 g/dL (12.0-16.0) 12/28/24 08:31
Plt Count 282 10^3/uL (130-400) 12/28/24 08:31
PT 15.6 Sec (11.4-14.6) H 12/28/24 08:31
INR 1.21 12/28/24 08:31
eGFR > 60.00 12/29/24 07:08
Physical Exam
awake, alert. NAD.
HEENT: No Jaundice
Pulmonary: Other (no respiratory distress)
Neuro: Non Focal
Review of Systems
Review of Systems
Respiratory: Denies Cough
Gastrointestinal: Reports Other (constipation, improved )
Neurological: Reports Numbness (along right lateral thigh)
--- NOTE | 2024-12-29 13:45 | W.DS.TRANS ---
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
-
Discharge Instructions:
Discharge Diagnosis/Procedures pathologic compression fracture; rib mass status
post biopsy; evidence of metastatic malignancy
Diet Regular
Activity As tolerated
Driving Restrictions No driving
Bathing Restrictions None
Instructions:
Stand-Alone Forms:
Changes to Home Medications: Yes
Discharge Medications:
DC Medications w/original date entered in [employer]
dexamethasone 2 mg tablet 2 mg PO Q8H #90 tabs 12/29/24
escitalopram oxalate 20 mg tablet 20 mg PO DAILY #0 tabs 12/29/24
gabapentin 300 mg capsule 300 mg PO TID #90 caps 12/29/24
oxycodone 5 mg tablet 5 mg PO Q4HPRN PRN moderate/severe pain #20 tabs 12/29/24
pantoprazole 40 mg tablet,delayed release 40 mg PO DAILY #30 tabs 12/29/24
polyethylene glycol 3350 17 gram oral powder packet 17 g PO DAILY #100 ea 12/29/24
Home Medication Changes
Take Decadron 2mg once every 8 hours until directed to titrate further as outpatient (after starting radiation)
You may continue to take Motrin as needed for pain. Protonix is prescribed to help protect lining of the stomach while on Motrin and steroids. You are also prescribed Oxycodone as needed for severe pain (this is stronger than previously prescribed
Epsom).
You are started on higher dosing Gabapentin to help with pain.
Take Miralax daily to prevent constipation, increase to twice a day (can also double dose) for constipation.
Pending Results: Yes
Additional Pending Results:
biopsy results
--- NOTE | 2024-12-29 14:02 | W.DS.TRANS ---
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
-
Discharge Instructions:
Discharge Diagnosis/Procedures pathologic compression fracture; rib mass status
post biopsy; evidence of metastatic malignancy
Diet Regular
Activity As tolerated
Driving Restrictions No driving
Bathing Restrictions None
Instructions:
Stand-Alone Forms:
Changes to Home Medications: Yes
Discharge Medications:
DC Medications w/original date entered in [employer]
dexamethasone 2 mg tablet 2 mg PO Q8H #90 tabs 12/29/24
escitalopram oxalate 20 mg tablet 20 mg PO DAILY #0 tabs 12/29/24
gabapentin 300 mg capsule 300 mg PO TID #90 caps 12/29/24
oxycodone 5 mg tablet 5 mg PO Q4HPRN PRN moderate/severe pain #20 tabs 12/29/24
pantoprazole 40 mg tablet,delayed release 40 mg PO DAILY #30 tabs 12/29/24
polyethylene glycol 3350 17 gram oral powder packet 17 g PO DAILY #100 ea 12/29/24
Home Medication Changes
Take Decadron 2mg once every 8 hours until directed to titrate further as outpatient (after starting radiation)
You may continue to take Motrin as needed for pain. Protonix is prescribed to help protect lining of the stomach while on Motrin and steroids. You are also prescribed Oxycodone as needed for severe pain (this is stronger than previously prescribed
[place]).
You are started on higher dosing Gabapentin to help with pain.
Take Miralax daily to prevent constipation, increase to twice a day (can also double dose) for constipation.
Pending Results: No
--- NOTE | 2024-12-29 14:03 | W.DCSUMMARY ---
Addendum entered and electronically signed by Nerissa Amaya MD 12/30/24 07:18:
After further discussions with neurosurgery, decision made to transfer to [facility] for surgical intervention. Patient was transferred evening 12/29. Please see detailed note by Dr. Singer.
Original Note:
Discharge Summary
Discharge Data
Date of Admission: 12/27/24
Date of Discharge: 12/29/24
-
Pending Results: No
Hospital Course
Discharging Physician : Dr. Nerissa Amaya
Disposition : Home
Primary care physician : Dr. Tracee Gomez
Principal Discharge diagnosis : pathologic compression fracture with evidence of metastatic malignancy
Hospital Course :
Ms. Tracee Lundy is a 44 yo woman with distant hx melanoma, anxiety presents to the ER with constipation, low back pain over past month with numbness/tingling going down right leg to knee.
Triage vitals with pulse 104, BP 159/83, labs WNL. CT abdomen/pelvis with new findings highly suspicious for metastatic disease including pulmonary nodules, liver mass, right eighth rib mass and moderate pathologic compression fracture of L2. She
was admitted to medicine with IR, Oncology and Neurosurgery consulting.
Patient underwent right 8th rib biopsy on 12/28, results pending on time of discharge. MRI lumbar spine obtained with reading suggesting cord compression. Reviewed with Dr. Singer from neurosurgery. No clinical evidence of cord compression.
Patient with normal strength, no bowel/bladder changes except constipation (treated, see below), no saddle anesthesia. LSO brace was recommended as well as continued Decadron course. She is also prescribed Gabapentin 300mg PO TID and oxycodone PRN
to help with pain.
MRI Brain without intracranial metastasis. Abnormal T1 signal but per Oncology unlikely to be infiltrative process given no cytopenia on labs.
Patient's constipation was treated with Mag Citrate and she is discharged on Miralax daily, told she can increase to twice a day or double dose if constipated.
Time spent on discharge was 35 minutes.
Important imaging findings :
Abdomen/Pelvis CT 12/27/24
IMPRESSION:
New findings highly suspicious for metastatic disease.
Solid pulmonary nodules in the right middle lobe and right lower lobe.
Multiple hypoechoic liver masses.
Expansile soft tissue mass with destruction of the anterior right eighth rib.
Moderate pathologic compression fracture of L2 with right lateral paravertebral extraosseous soft tissue, and possible soft tissue extension into the right neural foramen and spinal canal. Retropulsion of the posterior cortex of L2 also appears to
contribute to a degree of spinal canal stenosis.
Lumbar Spine MRI 12/29/24
IMPRESSION:
Pathologic L2 compression fracture with extensive extraosseous tumor spread into the right paraspinal soft tissues, right neural foramen and epidural space at this level as described with associated compression of the underlying conus/cauda equina
nerve roots.
Extensive osseous metastatic disease.
Brain MRI 12/29/24
IMPRESSION:
No acute intracranial abnormality noted. No MR evidence for intracranial metastases.
Diffuse T1 hypointense marrow signal is nonspecific. This can be seen in individuals with chronic anemia, chronic hypoxemia (such as smoking), myelofibrosis, bone marrow hyperplasia, iron deposition related pathologies, metastases, versus other
myeloproliferative/myelopathy disorders. If further evaluation is clinically indicated, correlation with bone scan can be considered.
Procedure findings :
Discharge Plan
-
Patient Disposition: Home (Routine Discharge)
Discharge Diagnosis/Procedures: pathologic compression fracture; rib mass status post biopsy; evidence of metastatic malignancy
Diet: Regular
Activity: As tolerated
Driving Restrictions: No driving
Bathing Restrictions: None
Referrals:
Tracee Gomez PA-C [Family Provider, Family Practice] - in less than 1 week
Vivienne Sparks, [Active, Hematology / Oncology]
Additional Discharge Medication Instructions: Take Decadron 2mg once every 8 hours until directed to titrate further as outpatient (after starting radiation)
You may continue to take Motrin as needed for pain. Protonix is prescribed to help protect lining of the stomach while on Motrin and steroids. You are also prescribed Oxycodone as needed for severe pain (this is stronger than previously prescribed
Saline).
You are started on higher dosing Gabapentin to help with pain.
Take Miralax daily to prevent constipation, increase to twice a day (can also double dose) for constipation.
Wear the LSO brace during ambulation.
You will receive a phone call to schedule radiation on Tuesday and for follow up. You can also call Dr. Sparks' office.
Prescriptions:
New
polyethylene glycol 3350 17 gram Powder In Packet
17 g PO DAILY Qty: 100 0RF
pantoprazole 40 mg Tablet,Delayed Release (Dr/Ec)
40 mg PO DAILY Qty: 30 0RF
gabapentin 300 mg Capsule
300 mg PO TID Qty: 90 0RF
oxycodone 5 mg Tablet
5 mg PO Q4HPRN PRN (Reason: moderate/severe pain) Qty: 20 0RF
dexamethasone 2 mg tablet
2 mg PO Q8H Qty: 90 0RF
escitalopram oxalate 20 mg Tablet
20 mg PO DAILY Qty: 0 0RF
Discontinued
ggwnglmy-fsy-kvzz fum-folic ac 1 EACH tablet
1 ea PO DAILY
diazepam [Valium] 5 mg tablet
5 mg PO TID PRN (Reason: muscle spasm) Qty: 10 0RF
hydrocodone-acetaminophen 5-325 mg tablet
1 tab PO TID PRN (Reason: Pain) Qty: 7 0RF
Discharge Date and Time
Print Language: FRISIAN
--- NOTE | 2024-12-29 14:52 | CM ---
Chart reviewed. Plan for patient to d/c home today
No CM needs identified at this time
Plan: Home, no needs
--- NOTE | 2024-12-29 15:18 | W.PN.UPDATE ---
Addendum entered and electronically signed by Antonella Singer MD 12/29/24 16:38:
Please see new progress note later dated at approximately 4:35 PM for update.
Original Note:
Update Note
Progress Note Update
MRI lumbar spine reviewed.
There is evidence extensive soft tissue infiltration of right aspect of vertebral body at L2 with epidural compression, and impingement, compression nerve rootlets of cauda equina.
I called patient and discussed via telephone with her and MRI results.
She reports she had a BM this am, and denies any urinary retention, incontinence or perineal numbness, parasthesias. Able to ambulate, per patient and also per hospitalist, Dr. Amaya.
Seen by oncology, and is on steroids, gabapentin. Plan in place for urgent XRT on Tuesday12/31/2024.
Biopsy results pending.
A/P:
Patient with metastatic disease process, including, liver, lung and bony lesions--primary dx pending, and s/p rib biopsy yesterday.
While imaging demonstrates radiologic compression of cauda equina nerve rootlets, Patient clinically does not demonstrates cauda equina syndrome.
I advised that she wear the LSO brace when upright and weightbearing and also to closely watch for any symptoms of worsening back pain, numbness, tingling, weakness, or any urinary changes.
ADvised to return to ED if these occur.
Recommend continuing with high dose steroids through XRT.
We discussed indications for surgery and also what surgery may entail, which is likely spinal decompression and fusion and low threshold to proceed if symptoms change.
She and expressed understanding of this. All questions and concerns were answered and addressed.
Also discussed with Dr. Amaya, hospitalist.
[2024-12-29 15:53] VITALS: BP 134/73
--- NOTE | 2024-12-29 16:32 | PN.NS ---
Subjective
-
Patient seen and examined. Sitting in chair. Mother, , and brother at bedside. Offers no new complaints.
Physical Exam
-
Exam:
Exam:
Awake, alert, no apparent distress.
Pupils are equal and reactive.
Extract movements are full without nystagmus.
Tongue is midline.
Motor: 5/5 strength bilaterally in upper and lower extremities in all muscle groups.
Sensation to light touch is intact in bilateral upper and lower extremities.
Head is normocephalic atraumatic
Neck is supple
Cardiac: regular rate
Breathing nonlabored
Abdomen is soft
Extremities are warm
MRI of the lumbar spine with and without contrast performed on 12/29/2024:
IMPRESSION:
Pathologic L2 compression fracture with extensive extraosseous tumor spread into the right paraspinal soft tissues, right neural foramen and epidural space at this level as described with associated compression of the underlying conus/cauda equina
nerve roots.
Extensive osseous metastatic disease.
Problems
-
Problem Status Onset Code
Pathologic fracture of lumbar vertebra Acute M84.48XA
Mass of spine Acute M89.8X8
Constipation Acute K59.00
Assessment / Plan
-
This is a 44-year-old female who presents after severe back pain, right lower extremity radiculopathy, consistent with L2 radiculopathy. Imaging demonstrates pathologic L2 fracture with retropulsion, in setting of multiple other lesions noted,
suspicious for metastatic disease, including pulmonary nodules, liver lesions, liver lesions.
She is status post rib biopsy by interventional radiology.
I thoroughly reviewed the imaging studies with the patient, , and family bedside.
I discussed pros and cons and risks and benefits of proceeding with radiotherapy and bracing and high-dose steroids versus surgical dimension by means of decompression and fusion. We discussed that surgical intervention would allow for
decompression of the spinal canal and allow for room/space so that if the tumor swells after radiation, worsening of the patient's spinal canal compression and neural compression risks may be decreased. Additionally, posttreatment spinal
instability risks would also be decreased.
I also discussed the pros and cons of proceeding with radiation and that he would avoid surgery, but that there is still the risk that if the tumor swells, that she could have worsening neurological deficit, and would need surgical intervention
during or after radiation potentially.
Patient family would like to think over their options. If they do wish to proceed with surgery and transfer to [facility] for this, I am happy to expedite this.
If patient wishes to proceed with radiation therapy and bracing, recommend LSO bracing with the patient is ambulatory for external/mechanical support.
Continue gabapentin 300 mg 3 times daily.
Dexamethasone 2 mg 3 times daily, and may need to titrate up or down depending on radiation oncologist recommendations.
If patient develops new neurological symptoms, patient is advised to contact her oncologist, radiation oncologist soon as possible, or present to the emergency room.
Today's Communication
-
Discussed with patient's family, and hospitalist.
== END 2024-12-29 19:20 | disposition home or self-care (01) ==
LOC: 2 NORTH 17:51
PROVIDERS: ADMITTING PHYSICIAN Student in an Organized Health Care Education/Training Program; CONSULT PHYSICIAN Neurological Surgery; EMERGENCY PHYSICIAN Emergency Medicine; FAMILY PHYSICIAN Physician Assistant Medical; OTHER PHYSICIAN Internal Medicine Hematology & Oncology
DX: K59.00 Constipation, unspecified (principal); R11.0 Nausea; R10.9 Unspecified abdominal pain; C79.51 Secondary malignant neoplasm of bone; M54.9 Dorsalgia, unspecified; M84.48XA Pathological fracture, other site, initial encounter for fracture; K76.9 Liver disease, unspecified; R94.31 Abnormal electrocardiogram [ECG] [EKG]; M89.8X8 Other specified disorders of bone, other site; F41.9 Anxiety disorder, unspecified; R20.2 Paresthesia of skin; M48.061 Spinal stenosis, lumbar region without neurogenic claudication; R91.8 Other nonspecific abnormal finding of lung field; M54.16 Radiculopathy, lumbar region; R16.0 Hepatomegaly, not elsewhere classified; Z85.820 Personal history of malignant melanoma of skin; Z80.3 Family history of malignant neoplasm of breast; Z80.8 Family history of malignant neoplasm of other organs or systems; Z98.890 Other specified postprocedural states; Z79.899 Other long term (current) drug therapy
CPT/HCPCS: 20225; 51798; 70553; 72158; 74177; 77012; 80048; 80053; 81003; 81015; 82607; 83690; 83735; 84443; 84703; 85025; 85027; 85610; 87086; 88307; 88333; 88341; 88342; 93005; 96361; 96374; 96375; 99152; 99284; A9575; G0378; Q9967

== ENCOUNTER → 2025-01-23 13:41 | Outpatient (REF) | payer OTHER, SELFPAY ==
[2025-01-23 14:58] LABS: Hematocrit 24.5 % (37.0-47.0); Hemoglobin 8.2 g/dL (12.0-16.0); Mean Corp Hgb Conc. 33.5 g/dL (33.0-37.0); Mean Corpuscular Volume 91.1 fL (81.0-99.0); Platelet Count 235 10^3/uL (130-400); Red Cell Dist. Width 12.4 % (11.5-14.5)
[2025-01-23 15:24] LABS: ALT (SGPT) 90 U/L (0-35); AST (SGOT) 92 U/L (14-36); Albumin 3.0 g/dl (3.5-5.0); Alkaline Phosphatase 160 U/L (38-126); Blood Urea Nitrogen 9 mg/dl (7-17); Calcium 10.1 mg/dl (8.4-10.2); Carbon Dioxide 37 mmol/L (22-30); Chloride 84 mmol/L (98-107); Glucose 119 mg/dl (70-99); Potassium 3.9 mmol/L (3.5-5.1); Sodium 124 mmol/L (135-145); Total Protein 5.9 g/dl (6.3-8.2); eGFR > 60.00
[2025-01-23 15:31] LABS: Nucleated Red Blood Cells % 1.5 %
[2025-01-24 16:40] LABS: Hepatitis B Surface Antigen Negative (Negative)
== END ==
LOC: REG 13:41
PROVIDERS: ATTENDING PHYSICIAN Internal Medicine Hematology & Oncology; FAMILY PHYSICIAN Physician Assistant Medical
DX: C43.9 Malignant melanoma of skin, unspecified (principal); C79.51 Secondary malignant neoplasm of bone; R93.2 Abnormal findings on diagnostic imaging of liver and biliary tract; I26.99 Other pulmonary embolism without acute cor pulmonale
CPT/HCPCS: 36415; 80053; 82024; 84443; 85025; 86704; 86706; 87340

== ENCOUNTER → 2025-01-24 10:28 | Outpatient (REF) | payer OTHER, SELFPAY ==
[2025-01-24 12:29] LABS: HCG, Urine Qualitative Screen Negative
== END ==
LOC: REG 10:28
PROVIDERS: ATTENDING PHYSICIAN Radiology Radiation Oncology
DX: C79.52 Secondary malignant neoplasm of bone marrow (principal)
CPT/HCPCS: 81025

== ENCOUNTER 2025-01-25 08:23 | Outpatient (RCR) | payer OTHER, SELFPAY ==
[2025-01-25 08:30] VITALS: BP 140/89
[2025-01-25] MEDS: TYLENOL 650 MG PO (08:46)
[2025-01-25 08:57] VITALS: BP 140/89
[2025-01-25 09:15] VITALS: BP 131/75
[2025-01-25 10:51] VITALS: BP 148/86
== END 2025-01-25 23:59 | disposition home or self-care (01) ==
LOC: OID 08:23
PROVIDERS: ATTENDING PHYSICIAN Internal Medicine Hematology & Oncology; FAMILY PHYSICIAN Physician Assistant Medical
DX: C43.9 Malignant melanoma of skin, unspecified (principal); C79.51 Secondary malignant neoplasm of bone; R93.2 Abnormal findings on diagnostic imaging of liver and biliary tract; I26.99 Other pulmonary embolism without acute cor pulmonale; N92.0 Excessive and frequent menstruation with regular cycle
CPT/HCPCS: 36430; 86850; 86900; 86901; 86920; P9016

== ENCOUNTER → 2025-01-25 15:58 | Outpatient (REF) | payer OTHER, SELFPAY | LOC: RAD 15:58 | PROVIDERS: ATTENDING PHYSICIAN Neurological Surgery; FAMILY PHYSICIAN Physician Assistant Medical | DX: Z98.1 Arthrodesis status (principal); M79.2 Neuralgia and neuritis, unspecified; M54.50 Low back pain, unspecified; W19.XXXA Unspecified fall, initial encounter | CPT/HCPCS: 72072; 72100 ==

== ENCOUNTER 2025-02-03 20:16 | Inpatient (IN) | payer OTHER, SELFPAY ==
[2025-02-03 16:34] VITALS: BP 102/67
[2025-02-03 16:36] VITALS: BMI 30.9
[2025-02-03 17:13] LABS: Hematocrit 28.0 % (37.0-47.0); Hemoglobin 9.1 g/dL (12.0-16.0); Mean Corp Hgb Conc. 32.5 g/dL (33.0-37.0); Mean Corpuscular Volume 88.6 fL (81.0-99.0); Platelet Count 135 10^3/uL (130-400); Red Cell Dist. Width 14.1 % (11.5-14.5)
[2025-02-03] MEDS: NSS 1000 IV ×3 (17:16→22:04)
[2025-02-03] MEDS: MORPHINE SULFATE 4 MG IV (17:17)
[2025-02-03] MEDS: REGLAN 10 MG IV (17:17)
[2025-02-03 17:26] VITALS: BP 118/76
[2025-02-03 17:35] LABS: ALT (SGPT) 31 U/L (0-35); AST (SGOT) 39 U/L (14-36); Albumin 3.3 g/dl (3.5-5.0); Alkaline Phosphatase 106 U/L (38-126); Blood Urea Nitrogen 47 mg/dl (7-17); Carbon Dioxide 39 mmol/L (22-30); Chloride 89 mmol/L (98-107); Estimated Creatinine Clearance 50 ml/min; Glucose 125 mg/dl (70-99); Potassium 3.6 mmol/L (3.5-5.1); Sodium 131 mmol/L (135-145); Total Protein 6.1 g/dl (6.3-8.2); eGFR 37.69
[2025-02-03 17:44] LABS: Calcium 15.6 mg/dl (8.4-10.2)
[2025-02-03 17:56] LABS: Nucleated Red Blood Cells % 2.2 %
[2025-02-03 18:00] VITALS: BP 132/77
--- NOTE | 2025-02-03 18:31 | ED.GENMED ---
History of Present Illness
General
Chief Complaint: Dizziness
Source: patient and spouse
Exam Limitations: none
Time Seen by Provider: 02/03/25 17:00
Nursing documentation reviewed up to this point in time: agreed with
History of Present Illness
History of Present Illness:
Note:
CHIEF COMPLAINT(S)
Weakness and inability to stand.
HISTORY OF PRESENT ILLNESS
The patient is a 44-year-old female who presents with weakness and inability to stand. She fell and was down for approximately one hour, during which she remained conscious but was too weak to get up independently. The patient confirms she did not
hit her head or ribs during the fall. However, she reports pain in the rib area, which she attributes to a history of cancer affecting her ribs. The pain is described as persistent, related to her cancer, and is not due to any recent trauma. She
reports no nausea. The patient requires assistance to ascertain the cause of her weakness and to address her rib pain, which she states may benefit from pain management.
PAST MEDICAL AND SURIGICAL HISTORY
History of cancer affecting the ribs.
PHYSICAL EXAM
General: Alert, no acute distress.
Skin: Warm, dry.
Head: Normocephalic, atraumatic.
Neck: Supple, trachea midline.
Eye Ears, Nose, Mouth, and Throat: Oral mucosa moist.
Cardiovascular: Normal peripheral perfusion, No edema.
Respiratory: Respirations are non-labored.
Gastrointestinal: Abdomen nondistended.
Back: Normal range of motion, Normal alignment.
Musculoskeletal: Normal ROM, normal strength.
Neurological: Alert and oriented to person, place, time, and situation, No focal neurological deficit observed.
Psychiatric: Cooperative, appropriate mood & affect.
PROBLEM LIST
Acute:
- Weakness and inability to stand
- Rib pain
Chronic:
- Cancer affecting ribs
PLAN
1. Admit the patient for further evaluation.
2. Obtain a CT scan of the head to rule out any intracranial pathology.
3. Administer intravenous fluids.
4. Provide pain management as appropriate for rib discomfort.
DIFFERENTIAL DIAGNOSIS
The Differential Diagnosis includes, in no particular order and is not limited to:
1. Metastatic bone disease
2. Dehydration
3. Electrolyte imbalance
4. Anemia
5. Central nervous system event (e.g., stroke)
6. Medication side effects
7. Infection
8. Neuromuscular disorder
9. Hypercalcemia due to malignancy
10. Orthostatic hypotension
CARE-UPDATE
02/03/25 - 18:58
Discussed the patients elevated calcium level (15.6), which is likely contributing to her symptoms of dizziness and weakness. Recommended initiating treatment for hypercalcemia, including intravenous fluids and consideration of bisphosphonates or
other agents. Agreed on admission to the hospitalist service for further management and monitoring of her condition. No acute intracranial findings on CT scan, minimizing immediate concern for significant head injury despite being on anticoagulation
therapy ([place]quist). Continue routine monitoring of renal function given elevated BUN and creatinine.
Disposition:
SUMMARY OF ENCOUNTER
The patient, a 44-year-old female, presented to the emergency department with complaints of weakness and inability to stand. She experienced a fall but reports no head or rib trauma. She has ongoing rib pain attributed to a known cancer affecting
her ribs. The evaluation in the emergency department included assessing for potential causes of weakness and pain. A CT scan of the head was conducted to rule out intracranial pathology. An elevated calcium level of 15.6 was noted, likely
contributing to her symptoms. Intravenous fluids were administered to address potential hypercalcemia, with consideration for further treatment options such as bisphosphonates. Renal function is to be monitored due to elevated BUN and creatinine
levels.
DISPOSITION
Admit
ASSESSMENT
The patient is assessed with weakness and inability to stand, rib pain possibly related to metastatic bone disease, and confirmed hypercalcemia due to her pre-existing cancer.
EMERGENCY TREATMENTS ADMINISTERED
Intravenous fluids were given to manage hypercalcemia.
MANAGEMENT OF THE PATIENTS CARE WAS DISCUSSED WITH
The patients care was discussed with the hospitalist service for admission and further management.
PLAN
The plan includes admitting the patient for ongoing evaluation and management of hypercalcemia and rib pain, continue administering intravenous fluids, and consider the use of bisphosphonates or other agents as needed to manage hypercalcemia.
Monitor renal function closely due to elevated BUN and creatinine levels.
INDEPENDENT REVIEW OF LABS AND INTERPRETATION OF TESTS
My independent review of calcium levels is elevated at 15.6.
My independent review of BMP indicates decreased renal function, with elevated BUN and creatinine levels.
MEDICATION RECONCILIATION
The administration of intravenous fluids was conducted to address hypercalcemia.
MEDICAL DECISION MAKING
-Complexity of Data Reviewed: Chronic conditions affecting care include a history of cancer affecting ribs and hypercalcemia due to malignancy. Differential diagnosis includes metastatic bone disease, dehydration, electrolyte imbalance, anemia,
central nervous system event, medication side effects, infection, neuromuscular disorder, hypercalcemia due to malignancy, and orthostatic hypotension.
-Data:
Category 1
No non-emergency department records reviewed beyond my independent lab review.
Category 3
Discussion of management with the hospitalist service for further care and monitoring of hypercalcemia and related symptoms.
-Risk:
Admission is indicated due to the significant risk of complications and acute issues, including hypercalcemia and potential renal impairment.
DIAGNOSIS
1. Weakness and inability to stand (R53.2)
2. Rib pain (M25.559)
3. Hypercalcemia (E83.52)
4. History of metastatic melanoma (C43.9)
Phy Exam
Physical Exam
Physical Exam:
.
Course
Orders/Labs/Results
Orders:
Orders
02/03/25 Dinner
Regular
At Your Request: Full Participation
02/03/25 16:43
Electrocardiogram (*1) Urgent
Reason for Study: Tachycardia
EKG- Treatment ONCE
02/03/25 16:57
CMP [Comprehensive Metabolic Panel] Urgent
Complete Blood Count/With Diff Urgent
Creatine Phosphokinase Urgent
Comment: ADD ON
02/03/25 17:06
CT Head W/o Iv Contrast Urgent
Comment:
Reason For Exam: head strike on eliquis
02/03/25 17:09
Add On- LAB Urgent
Tests Added?: cpk
0.9% Sodium Chloride 1000 ml [Nss] 1,000 ml IV BOLUS
Metoclopramide [Reglan] 10 mg IV NOW STA
Morphine Sulfate 4 mg IV NOW STA
02/03/25 19:26
Dexamethasone [Decadron] 4 mg PO NOW STA
02/03/25 19:31
Magnesium Stat
PTH [Intact PTH Includes Calcium] Stat
Phosphorus Stat
02/03/25 19:32
Ionized Calcium Stat
Venous Blood Gas Stat
%Oxygen/Room Air: RA
Vitamin D, 25-OH Stat
02/03/25 19:43
Admit/Transfer Patient As Directed
Co-Sign Provider:
Level of Care: Inpatient admission
Assign to:: Telemetry
Physician / Group: Za
Diagnosis: Hypercalcemia of malignancy
Reason for Telemetry: Other
Other Reason for Telemetry: hypercalcemia
Date to Stop Telemetry: 02/05/25
Time to Stop Telemetry: 11:00
Reason for Hospitalization: hypercalcemia
Expected length of stay greater than two midnights?: Yes
ELOS- Estimated Length of Stay in days: 2
I certify the patient meets the requirements for IP care: Yes
PRN Pain Medication Management As Directed
May give lesser potent ordered pain med per pt: Yes
preference::
Protocol:: Medication orders for pain may be administered in a
manner that supports deferring to patient preference
when the pt is:
- Requesting an ordered lesser potent pain medication.
Least to most potent pain medications are defined
as: acetaminophen < NSAID < tramadol < opioids
(morphine, oxycodone, hydromorphone).
- Requesting a lesser dose of the same medication IF
ORDERED.
- Requesting a less intrusive route of administration
if both routes are prescribed by the provider (PO <
IV).
02/03/25 19:46
Code Status As Directed
Resuscitation Status: Full Code
02/03/25 19:57
Calcitonin ([place]) Synthetic [Calcimar/Calcitonin 400 Units/ 2 ml] 400 units IM ONCE ONE
02/03/25 19:58
0.9% Sodium Chloride 500 ml [Nss] 500 ml IV BOLUS
02/03/25 20:06
PTH Related Peptide LC-MS/MS [S] Stat
0.9% Sodium Chloride 500 ml [Nss] 1,000 ml IV BOLUS
02/03/25 21:08
0.9% Sodium Chloride 1000 ml [Nss] 1,000 ml IV 150 mls/hr
Acetaminophen [Tylenol] 650 mg PO Q6HPRN PRN mild pain
Apixaban [Eliquis] 5 mg PO BID
Bisacodyl [Dulcolax] 10 mg RECTAL [id number] PRN
Docusate W/Senna [Senokot-S] 1 tablet PO BIDPRN PRN
Metoclopramide [Reglan] 10 mg IV Q6HPRN PRN
Oxycodone [Roxicodone] 5 mg PO Q4HPRN PRN moderate/severe pain
Polyethylene Glycol Powder [Miralax] 17 grams PO DAILYPRN PRN
Polyethylene Glycol Powder [Miralax] 17 grams PO DAILYPRN PRN constipation
02/03/25 21:08
NEPHROLOGY CONSULT Routine
Consulting Provider: Alfredo Ceballos
Was physician already notified: Yes
Reason for consult: hypercalcemia of malignancy
ONCOLOGY CONSULT Routine
Consulting Provider: Vivienne Sparks
Was physician already notified: Yes
Reason for consult: metastatic melanoma, hypercalcemia of malginancy
VTE Contraindication Routine
VTE Mechanical Device Contraindication: Medical Contraindication
Pharmocologic Contraindication: Medical Contraindication
Activity As Directed
Activity Level: With Assistance
Vital Signs As Directed
Frequency: Per unit guidelines
O2 Therapy [RESP] Routine
Nasal Cannula Liter Flow: 2 LPM
Titrate/Wean O2 to maintain O2 sat greater than (%): 92
Pt Eval And Treat Routine
Activity Level: With Assistance
02/03/25 22:00
Cephalexin Monohydrate [Keflex] 500 mg PO QID
Gabapentin [Neurontin] 300 mg PO BID
Zoledronic Acid [Zometa] 4 mg 0.9% Sodium Chloride 100 ml [Nss] 100 ml IV ONCE
02/04/25 06:00
Albumin IN AM
Basic Metabolic Panel IN AM
Complete Blood Count/No Diff IN AM
Creatine Phosphokinase IN AM
Magnesium IN AM
02/04/25 08:00
Dexamethasone [Decadron] 4 mg PO 0800,1600
Escitalopram Oxalate [Lexapro] 20 mg PO DAILY
Famotidine [Pepcid] 20 mg PO DAILY
02/05/25 11:00
DC Protocol for Telemetry ONCE
Abnormal Lab Results
02/03/25 02/03/25 02/03/25
16:57 19:31 19:32
RBC 3.16 L 10^6/uL
(4.20-5.40)
Hgb 9.1 L g/dL
(12.0-16.0)
Hct 28.0 L %
(37.0-47.0)
MCHC 32.5 L g/dL
(33.0-37.0)
Abs Immat Gran (auto) 0.3 H 10^3/uL
(0-0.05)
Absolute Lymphs (auto) 0.5 L 10^3/uL
(1.2-3.4)
Immature Gran % 6.0 H %
(0-0.5)
Neutrophils % 77.3 H %
(42.2-75.2)
Lymphocytes % 9.5 L %
(20.5-51.1)
VBG pH 7.45 H
(7.32-7.43)
VBG pCO2 56 H mmHg
(35-48)
VBG pO2 51 H mmHg
(30-50)
VBG HCO3 38.9 H mmol/L
(22-27)
Sodium 131 L mmol/L
(135-145)
Chloride 89 L mmol/L
(98-107)
Carbon Dioxide 39 H mmol/L
(22-30)
BUN 47 H mg/dl
(7-17)
Creatinine 1.7 H mg/dL
(0.6-1.0)
Glucose 125 H mg/dl
(70-99)
Calcium 15.6 H* mg/dl 14.7 H* mg/dl
(8.4-10.2) (8.4-10.2)
Ionized Calcium 2.05 H* mMOL/L
(1.15-1.33)
Phosphorus 4.6 H mg/dl
(2.5-4.5)
AST 39 H U/L
(14-36)
Total Protein 6.1 L g/dl
(6.3-8.2)
Albumin 3.3 L g/dl
(3.5-5.0)
02/03/25 16:57
02/03/25 16:57
Vital Signs
Initial and Last Documented VS:
Initial Vital Signs
Pulse Ox
92
02/03/25 16:26
Last Documented Vital Signs
Temp Pulse Resp BP Pulse Ox
99.4 F 124 18 125/75 95
02/03/25 23:00 02/03/25 23:00 02/03/25 23:00 02/03/25 23:00 02/03/25 21:25
*Radiology
Radiology exam reviewed: radiology read reviewed
*Pulse Oximetry
SaO2: 94
Nasal Cannula flow liters per minute: 2
Oxygen Mode of Delivery: Room air
Patient hypoxic: no
*Critical Care Note
Total Time (30-74mins, 75-104mins- exclusive of procedures): Not Applicable
ED Attending Note
-
Portions of this chart may have been created with voice recognition software.� Occasional wrong word or��sound alike� substitutions may have occurred due to the inherent limitations of voice recognition software.
Discharge Plan
Departure
Patient Disposition: Admit
Date of Disposition: 02/03/25
Time of Disposition: 19:00
Admit to: Telemetry
Presentation/result/management discussed w/ accepting MD/DO: Hospitalist
Discharge Problem:
Weakness, Metastatic melanoma, Hypercalcemia, Acute dehydration
Interventions
Interventions:
*Risk Screen - Suicide Last Done: 02/03/25 16:36
*General Assessment Last Done: 02/03/25 16:36
*Neglect/Abuse Screening Last Done: 02/03/25 16:36
*ED- Fall Risk Assessment Last Done: 02/03/25 16:36
*ED COVID-19 Vaccine History Last Done: 02/03/25 16:36
*ED Influenza Vaccine History Last Done: 02/03/25 16:36
*Nursing Disposition Last Done: 02/03/25 19:50
ED- Neurological Assessment Last Done: 02/03/25 16:36
ED- Cardiac Assessment Last Done: 02/03/25 16:36
ED Swallowing Screen Last Done: 02/03/25 16:36
Discharge Date and Time
Discharge Date/Time: 02/03/25 21:07
[2025-02-03 19:00] VITALS: BP 119/65
--- NOTE | 2025-02-03 19:04 | HPS.HSE ---
Family Physician
-
Family Physician: Tracee Gomez
Chief Complaint
-
Weakness
History of Present Illness
This is a 44-year-old female with past medical history of recurrent metastatic melanoma, PE presenting to the emergency department with dizziness and a fall 3 times today.
Patient reported that she had a fall 3 times because she was dizzy and lightheaded. She fell while ambulating with a walker. She did hit the back of her head.
Patient was recently diagnosed with recurrent metastatic melanoma with mets to the axial and appendicular skeleton, lungs pleural cavity liver and a right retroperitoneal lymphadenopathy. She had a pathological fracture of the lumbar spine. There
was some feeling that there is compression of the spinal labs and this was consistent with a radicular symptoms. Prior to getting biopsy confirmation of malignancy she underwent lumbar fusion at [facility], complicated by new PE s/p surgery
and started on eliquis with resultant heavy menstrual blood loss requiring transfusion now improved. She was treated with steroids. Patient started calcium supplementation and she is currently on Decadron taper.
Patient started immunotherapy few days ago. Spouse reported that after the immunotherapy she had gotten weaker and perceptively so over the last 3 days. She had multiple falls. The fall today reports was precipitated with the dizziness and then
her legs just gave way. She denied syncopal episode. She was awake and alert but very weak and they were unable to get her up.
She has also been on cephalexin to treat some oozing coming from the suture site which has improved and she has 1 more day to go. She has not had any fevers or chills. She denies any urinary symptoms. She denies any GI losses including vomiting
or diarrhea. She does have markedly diminished appetite.
In the emergency department she was afebrile, blood pressure was 118/76 with a pulse of 114 and she was satting 94% on room air. ECG showed sinus tachycardia at 124. CT of the head was negative for any focal abnormalities. CBC shows a white count
of 5.5 hemoglobin 9.1 platelet of 135 similar to prior. Electrolytes notable for a sodium of 131, bicarb of 39, BUN of 47 and a creatinine of 1.7. Blood glucose was 125. Calcium was elevated at 15.6 with an albumin of 3.3.
Medical History
Past Medical History
Past Medical History: Reports Cancer (Metastatic melanoma) and Other (anxiety )
Past Surgical History: Reports Other
Social History
Tobacco: Non-smoker
Alcohol: None
Family History
Family History: Not pertinent
Allergies / Home Medications
Allergies reflects when Allergies were last updated in [facility].
Home Medications with original date entered in [facility]
Allergy/Medication List:
Allergies
Allergy/AdvReac Type Severity Reaction Status Date / Time
No Known Allergies Allergy Verified 02/03/25 16:36
Home Medications
oxycodone 5 mg tablet 5 mg PO Q4HPRN PRN moderate/severe pain #20 tabs 12/29/24
gabapentin 300 mg capsule 300 mg PO BID Neurological Condition 01/25/25
gabapentin 600 mg tablet 600 mg PO HS Neurological Condition 01/25/25
acetaminophen 325 mg tablet (Tylenol) 650 mg PO Q6HPRN PRN mild pain 02/03/25
apixaban 5 mg tablet (Eliquis) 5 mg PO BID Blood Clot Prevention/Tx 02/03/25
calcium citrate 1,260 mg PO BID Supplement 02/03/25
cephalexin 500 mg capsule 500 mg PO QID Infection 02/03/25
dexamethasone 2 mg tablet 4 mg PO BID 02/03/25
escitalopram oxalate 20 mg tablet 20 mg PO DAILY Mental Health/Anxiety 02/03/25
famotidine 20 mg tablet (Pepcid) 20 mg PO DAILY Gastrointestinal Issue 02/03/25
pantoprazole 40 mg tablet,delayed release 40 mg PO DAILYPRN PRN gerd 02/03/25
polyethylene glycol 3350 17 gram oral powder packet 17 g PO DAILYPRN PRN constipation 02/03/25
Review of Systems
-
Constitutional: Reports Fatigue; Denies Fever, Weight Gain, Weight Loss or Chills
EENT: Reports No Symptoms
Respiratory: Reports No Symptoms
Cardiac: Denies Chest Pain, Diaphoresis, Palpitations or Syncope
Abdomen/GI: Reports Nausea; Denies Vomiting, Diarrhea, Bloody Stools or Black Stools
: Reports No Symptoms
Musculoskeletal: Reports No Symptoms
Skin: Reports No Symptoms
Neurological: Reports Weakness
Endocrine: Reports No Symptoms
Hematologic/Lymphatic: Reports No Symptoms
Psych: Reports No Symptoms
Physical Exam
Vital Signs
Vital Signs
Temp Pulse Resp BP Pulse Ox
98.5 F 114 21 118/76 94
02/03/25 16:29 02/03/25 17:26 02/03/25 17:26 02/03/25 17:26 02/03/25 18:31
Physical Exam
General: No Apparent Distress
HEENT: NormoCephalic, Anicteric, Moist mucous membranes, Atraumatic, PERRLA and Oxygen
Respiratory: Clear; No Wheezes
Cardiac: S1/S2, Regular Rhythm and Tachycardia
GI: Soft and Non Tender
Rectal: Deferred by Provider
Genito-urinary: Deferred by me
Musculoskeletal: No Clubbing, No Cyanosis and No Edema
Skin: Warm and Dry; No Rash
Neuro: AO x 3 and Other (4/5 bilateral strenght at the hips otherwise 5/5 strenght)
Psych: Calm
Laboratory Results
-
02/03/25 16:57
02/03/25 16:57
Laboratory Results
Total Bilirubin 0.6 mg/dl (0.2-1.3) 02/03/25 16:57
AST 39 U/L (14-36) H 02/03/25 16:57
ALT 31 U/L (0-35) 02/03/25 16:57
Alkaline Phosphatase 106 U/L (38-126) 02/03/25 16:57
Data Reviewed
-
CT Scan: Report Reviewed by me
Medical Tests (Nuc Med, Echo, EKG etc): Image Personally Visualized and interpreted
Lab Data: Labs Reviewed by me
Old Records: Reviewed
Impression/Plan
-
IMPRESSION:
44-year-old with history of recent diagnosis of metastatic melanoma with extensive mets to the axial and appendicular skeleton, lungs, liver, status post lumbar spinal fusion surgery for pathological compression fracture, status post completion of
radiation to the lumbar spine x 5, initiation of immunotherapy recently who presents to the emergency department after a fall and found to have profound weakness. She is markedly dehydrated with SHAHEED and a creatinine of 1.7, calcium is markedly
elevated at 15.6 with an albumin of 3.3. CT of the head was unremarkable. Rest of her labs were relatively stable.
PLAN:
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 Suspect weakness and fall may in part be related to this
- admit to telemetry
- check labs including ionized calcium, phos, mag, vit D, pth and pth-rp
- start volume expansion, given 1L bolus in ED, continue with 150 ml/hr NS
- calcitonin 4 unit/kg x 1, then repeat calcium 6 hours to check efficacy
- consider starting bisphosphonate
- stopping calcium/vit d and alkali supplementation
- nephrology consultation
SHAHEED - Cr 1.7, baseline 0.5. BUN 47. BUN/Cr > 20, suspect prerenal azotemia.
- IV fluids as above
- renal dose medications
- nephrology consultation
Metastatic melanoma - Mets to bone currently on dexamethasone taper
- continue dexamethasone 4mg po am, pm
- continue cephalexin for suture site irritation/infection to complete in 1 one day, no signs of systemci infection
- continue pain control with gabapentin 300 bid for now pending renal function
- opioids prn
- ppi daily
PE
- continue apixaban
PT consult
Code status - Full Code
[2025-02-03 19:38] LABS: Venous Blood Gas B.E. 13.3 mmol/L (-4 to +4); Venous Blood Gas O2 Sat % 84.7 %
[2025-02-03] MEDS: DECADRON 4 MG PO (19:42)
[2025-02-03 20:11] LABS: Magnesium 2.2 mg/dl (1.6-2.3)
[2025-02-03 20:23] LABS: Calcium 14.7 mg/dl (8.4-10.2)
[2025-02-03] MEDS: CALCIMAR/CALCITONIN 400 UNITS/ 2 ML IM (20:34)
[2025-02-03 21:25] VITALS: BP 116/65
[2025-02-03 21:27] VITALS: BMI 30.8
[2025-02-03] MEDS: TYLENOL 650 MG PO (22:02)
[2025-02-03] MEDS: KEFLEX 500 MG PO (22:02)
[2025-02-03] MEDS: NEURONTIN 300 MG PO (22:03)
[2025-02-03] MEDS: ROXICODONE 5 MG PO (22:03)
[2025-02-03] MEDS: ELIQUIS 5 MG PO (22:03)
[2025-02-03] MEDS: ZOMETA 105 MG IV (22:04)
[2025-02-03 23:00] VITALS: BP 125/75
[2025-02-04 03:14] VITALS: BP 120/73
--- NOTE | 2025-02-04 03:23 | PTCARENOTE ---
pt was 85% on room air- asymtpmatic- 2 liters placed-up to 95%
[2025-02-04] MEDS: NSS 1000 IV ×4 (04:16→23:57)
[2025-02-04 08:25] VITALS: BP 133/74
[2025-02-04 09:04] LABS: Hematocrit 24.1 % (37.0-47.0); Hemoglobin 7.6 g/dL (12.0-16.0); Mean Corp Hgb Conc. 31.5 g/dL (33.0-37.0); Mean Corpuscular Volume 94.9 fL (81.0-99.0); Platelet Count 100 10^3/uL (130-400); Red Cell Dist. Width 14.4 % (11.5-14.5)
[2025-02-04] MEDS: NEURONTIN 300 MG PO ×2 (09:10→19:39)
[2025-02-04] MEDS: PEPCID 20 MG PO (09:10)
[2025-02-04] MEDS: ELIQUIS 5 MG PO ×2 (09:10→19:39)
[2025-02-04] MEDS: KEFLEX 500 MG PO ×4 (09:11→21:45)
[2025-02-04] MEDS: LEXAPRO 20 MG PO (09:11)
[2025-02-04] MEDS: DECADRON 4 MG PO ×2 (09:11→16:13)
[2025-02-04 09:12] LABS: Albumin 2.9 g/dl (3.5-5.0); Blood Urea Nitrogen 40 mg/dl (7-17); Calcium 12.0 mg/dl (8.4-10.2); Carbon Dioxide 34 mmol/L (22-30); Chloride 96 mmol/L (98-107); Estimated Creatinine Clearance 61 ml/min; Glucose 116 mg/dl (70-99); Magnesium 2.0 mg/dl (1.6-2.3); Potassium 3.2 mmol/L (3.5-5.1); Sodium 134 mmol/L (135-145); eGFR 47.58
[2025-02-04 10:10] LABS: Vitamin D, 25-OH*** < 12.8 ng/mL (30-80)
[2025-02-04] MEDS: REGLAN 10 MG IV (10:17)
[2025-02-04 11:26] VITALS: BP 133/78
--- NOTE | 2025-02-04 12:27 | CON.ONC ---
Consultation
-
Date Consultation Requested: 02/03/25
Date Consultation Performed: 02/04/25
Requesting Provider: Cathy Mendenhall MD
Performing Provider: Sabrina Ware MD; Tracee Onofre MD
Reason for Consultation: Metastatic Melanoma, Hypercalcemia of malignancy
Impression
Impression
Metastatic Melanoma
Hypercalcemia
Pancytopenia
Metabolic alkalosis with compensatory respiratory acidosis
Hyponatremia
Hypokalemia
SHAHEED
Plan
Plan
Immunotherapy related endocrinopathy vs osteolytic hypercalcemia from bone metastases vs. PTHrp secreting tumor vs. exogenous calcium intake (calcium citrate) with concurrent SHAHEED vs. granulomatous inflammation/sarcoid-like reaction vs. other
Calcium 15.6--> 12.0, TSH 0.06, Free T4: 1.54 ; Vitamin D 25-Hydroxy <12.8
previously given calcitonin and zometa
am cortisol will likely be suppressed from dexamethasone intake
-PTH, PTHrp pending.
-already on dexamethasone for pain relief, but may need to be on high-dose corticosteroids-- pending more lab review.
-continue to monitor calcium levels
-will continue to follow with you
Patient History
History of Present Illness
44 year old female with metastatic melanoma s/p excision and sentinel LN excisional biopsy (2019), s/p radiation presenting with profound fatigue resulting into multiple falls.
In 2019, Ms. Lundy had a melanoma in her left upper arm excised with sentinel LN excisional biopsy-- both negative at that time. PET/CT in October 2019, and CT CAP in September 2020 showed no evidence of metastases.
In 12/24/2024, she presented at [facility] for constipation and low back pain associated with numbness and tingling. CT findings showed: multiple pulmonary nodules, 2 liver masses largest in posterior inferior right hepatic lobe measuring 1.8 cm and 1.4
cm. Soft tissue mass in right eighth rib measuring 6.1 x 3.7 cm with extra osseous soft tissue destruction. Moderate compression fracture of the L2 with extraosseous soft tissue at the right lateral aspect of the L2 measuring 6.0 x 3.3cm Lumbar MRI
confirmed pathologic L2 compression fracture with extensive extraosseous tumor spread into the right paraspinal soft tissues, right neural foramen and epidural space with compression of the underlying conus/cauda equina nerve roots. Brain MRI showed
no evidence for intracranial metastases. Bone biopsy was positive for metastatic melanoma.
On 01/04/20, she had a spinal decompression L2 laminectomy with fusion T12-L3 in [facility], pathology was consistent with metastatic melanoma. On follow up, PE was found so she was started on Eliquis, but was placed on hold due to heavy menstrual
bleeding. She was also started on steroid for bilateral leg pain. Currently on Dexamethasone 4mg BID.
PET/CT 01/21/2025: FDG avid right pleural effusion, innumerable bilateral FDG avid pulmonary nodules, few scattered small foci of FDG uptake in the liver, right retroperitoneal FDG avid lymph node. Widespread innumerable abnormal foci of FDG uptake
throughout the entire axial and appendicular skeleton.
2 weeks ago, she started radiation therapy, completed 5x and started on Opdivo last Tuesday. At which point, she started having profound fatigue resulting in multiple falls. She previously was able to walk around with a walker, but was unable to
do so due to the fatigue and lightheadedness. She denies headache, palpitation, chest pain, fever.
Hypercalcemia also noted at 15.6, currently at 12 after calcitonin and Zometa.
Past-Medical/Surgical History
Metastatic melanoma (left upper arm) s/p excision s/p radiation
L2 compression fraction with canal extension
L2 laminectomy with fusion T12-L3, (+) melanoma
Pulmonary Embolism
Heavy menstrual bleeding on Eliquis
Patient Medication
�Medication �Instructions �Recorded �Confirmed �Last Taken �Type
oxycodone 5 mg tablet 5 mg PO Q4HPRN PRN moderate/severe 12/29/24 02/03/25 02/01/25 Rx
pain #20 tabs
gabapentin 300 mg capsule 300 mg PO BID Neurological 01/25/25 02/03/25 02/03/25 History
Condition
gabapentin 600 mg tablet 600 mg PO HS Neurological Condition 01/25/25 02/03/25 02/02/25 History
acetaminophen 325 mg tablet 650 mg PO Q6HPRN PRN mild pain 02/03/25 02/03/25 02/03/25 History
(Tylenol)
apixaban 5 mg tablet (Eliquis) 5 mg PO BID Blood Clot 02/03/25 02/03/25 02/03/25 History
Prevention/Tx
calcium citrate 1,260 mg PO BID Supplement 02/03/25 02/03/25 02/03/25 History
cephalexin 500 mg capsule 500 mg PO QID Infection 02/03/25 02/03/25 02/03/25 History
dexamethasone 2 mg tablet 4 mg PO BID INFLAMMATION 02/03/25 02/03/25 02/03/25 History
escitalopram oxalate 20 mg tablet 20 mg PO DAILY Mental 02/03/25 02/03/25 02/03/25 History
Health/Anxiety
famotidine 20 mg tablet (Pepcid) 20 mg PO DAILY Gastrointestinal 02/03/25 02/03/25 02/03/25 History
Issue
pantoprazole 40 mg tablet,delayed 40 mg PO DAILYPRN PRN gerd 02/03/25 02/03/25 Unknown History
release
polyethylene glycol 3350 17 gram 17 g PO DAILYPRN PRN constipation 02/03/25 02/03/25 Unknown History
oral powder packet
Active Medications
Generic Name Dose Route Start Last Admin
Trade Name Freq PRN Reason Stop Dose Admin
Acetaminophen 650 mg 02/03/25 21:08 02/03/25 22:02
Acetaminophen 325 Mg Tablet PO 03/03/25 21:07 650 mg
Q6HPRN PRN Administration
mild pain
Apixaban 5 mg 02/03/25 21:08 02/04/25 09:10
Apixaban (Eliquis) 5 Mg Tablet PO 03/03/25 21:07 5 mg
BID RAKESH Administration
Bisacodyl 10 mg 02/03/25 21:08
Bisacodyl 10 Mg Rectal Suppository RECTAL 03/03/25 21:07
[id number] PRN
constipation
Cephalexin HCl 500 mg 02/03/25 22:00 02/04/25 09:11
Cephalexin 500 Mg Capsule PO 02/04/25 23:00 500 mg
QID RAKESH Administration
Dexamethasone 4 mg 02/04/25 08:00 02/04/25 09:11
Dexamethasone 2 Mg Tablet PO 03/04/25 07:59 4 mg
0800,1600 RAKESH Administration
Escitalopram Oxalate 20 mg 02/04/25 08:00 02/04/25 09:11
Escitalopram 20 Mg Tablet PO 03/04/25 07:59 20 mg
DAILY RAKESH Administration
Famotidine 20 mg 02/04/25 08:00 02/04/25 09:10
Famotidine 20 Mg Tablet PO 03/04/25 07:59 20 mg
DAILY RAKESH Administration
Gabapentin 300 mg 02/03/25 22:00 02/04/25 09:10
Gabapentin 300 Mg Capsule PO 03/03/25 21:59 300 mg
BID RAKESH Administration
Sodium Chloride 1,000 mls @ 150 mls/hr 02/03/25 21:08 02/04/25 10:21
Nss IV 1,000 mls
.Q6H40M RAKESH Administration
Metoclopramide HCl 10 mg 02/03/25 21:08 02/04/25 10:17
Metoclopramide 10 Mg/2 Ml Vial IV 03/03/25 21:07 10 mg
Q6HPRN PRN Administration
nausea/vomiting
Oxycodone HCl 5 mg 02/03/25 21:08 02/03/25 22:03
Oxycodone 5 Mg Regular Release Tablet PO 02/17/25 21:07 5 mg
Q4HPRN PRN Administration
moderate/severe pain
Polyethylene Glycol 17 grams 02/03/25 21:08
Polyethylene Glycol Powder 17 Grams Packet PO 03/03/25 21:07
DAILYPRN PRN
constipation
Senna/Docusate Sodium 1 tablet 02/03/25 21:08
Docusate W/Senna (Liza-Colace) Tablet PO 03/03/25 21:07
BIDPRN PRN
constipation
Sodium Chloride 0 flush 02/03/25 22:00
Sodium Chloride 0.9% (Flush) Syringe IV 03/03/25 21:59
PER PROTOCOL RAKESH
Review of Systems
-
History Source: Patient
Constitutional: Reports Fatigue and Weakness
EENT: Reports No Symptoms
Respiratory: Reports Trouble Breathing (on O2 nasal cannula)
Cardiac: Denies Chest Pain, Diaphoresis or Palpitations
GI: Denies Abdominal Pain, Nausea, Vomiting, Diarrhea or Constipated
Musculoskeletal: Reports Other (bilateral leg pain)
Neuro: Denies Headache or Numbness
Psych: Reports No Symptoms
Physical Exam
-
General: Conversant and Appears Chronically Ill
Cardiology: Normal Sinus Rhythm, S1 and S2
Pulmonary: Clear
GI: Soft and Normal Bowel Sounds
Musculoskeletal: No Clubbing, No Cyanosis and No Edema
Extremities: Pulses Present
Skin: Warm
Psych: Calm
Labs
Lab Results
WBC 4.3 10^3/uL (4.8-10.8) L 02/04/25 08:06
RBC 2.54 10^6/uL (4.20-5.40) L 02/04/25 08:06
Hgb 7.6 g/dL (12.0-16.0) L 02/04/25 08:06
Hct 24.1 % (37.0-47.0) L 02/04/25 08:06
MCV 94.9 fL (81.0-99.0) 02/04/25 08:06
MCH 29.9 pg (27.0-31.0) 02/04/25 08:06
MCHC 31.5 g/dL (33.0-37.0) L 02/04/25 08:06
RDW 14.4 % (11.5-14.5) 02/04/25 08:06
Plt Count 100 10^3/uL (130-400) L D 02/04/25 08:06
MPV 9.4 fL (7.4-10.4) 02/04/25 08:06
Abs Immat Gran (auto) 0.3 10^3/uL (0-0.05) H 02/03/25 16:57
Absolute Neuts (auto) 4.3 10^3/uL (1.4-6.5) 02/03/25 16:57
Absolute Lymphs (auto) 0.5 10^3/uL (1.2-3.4) L 02/03/25 16:57
Absolute Monos (auto) 0.4 10^3/uL (0.1-0.6) 02/03/25 16:57
Absolute Eos (auto) 0.0 10^3/uL (0-0.7) 02/03/25 16:57
Absolute Basos (auto) 0.0 10^3/uL (0-0.2) 02/03/25 16:57
Immature Gran % 6.0 % (0-0.5) H 02/03/25 16:57
Neutrophils % 77.3 % (42.2-75.2) H 02/03/25 16:57
Lymphocytes % 9.5 % (20.5-51.1) L 02/03/25 16:57
Monocytes % 6.6 % (1.7-9.3) 02/03/25 16:57
Eosinophils % 0.2 % (0-6) 02/03/25 16:57
Basophils % 0.4 % (0-2) 02/03/25 16:57
Creatinine 1.4 mg/dL (0.6-1.0) H 02/04/25 08:06
Vital Signs
Vital Signs
Temp Pulse Resp BP Pulse Ox
100.0 F 125 18 133/78 95
02/04/25 11:26 02/04/25 11:26 02/04/25 11:26 02/04/25 11:26 02/04/25 11:26
--- NOTE | 2025-02-04 14:06 | W.PN.HOSP.TC ---
Today's Communication/Plan
-
maintain on IVF
repeat cxr
ST evaluation
Assessment / Plan
Assessment / Plan
1. Hypercalcemia - Improving slowly
-Admission Ca of 15.6, Vit D 25 OH of <12.8, PTH level pending.
-suspect hypercalcemia of malignancy complicated by likely calcium vitamin D supplementation
-Got dose of zoledronic acid in ER
-Got dose of calcitonin 4u/kg in ER as well
-Maintain on IVF
-Calcium down to 12 today
-Await further nephro input
2. SHAHEED
-Presumed due to decreased oral intake and hypercalcemia related
-Avoid nephrotoxic medication
-Improved with IVF, monitor
3. Hyponatremia
-improved sodium level. monitor
4. Metastatic melanoma
- continue dexamethasone 4mg po am, pm
- continue cephalexin for suture site irritation/infection to complete in 1 one day, no signs of systemic infection
- continue pain control with gabapentin 300 bid for now pending renal function
- continue opioid
- Oncologist evaluated as well. Patient has been started on immunotherapy and would review if side effect of immunotherapy
5. h/o of PE
- Maintain on home dose of Eliquis
6. Hypokalemia
- maintain on PRN potassium
Full code
Time spent : 53 mins
Anticipated Discharge: > 48 hours
Subjective/Interval History
-
Date of Service: February 04, 2025
mentation bit better
apatite remains poor
afebrile
Objective Data
-
Labs:
Laboratory Results
02/04/25
08:06
WBC 4.3 L
Hgb 7.6 L
Hct 24.1 L
Plt Count 100 L D
Sodium 134 L
Potassium 3.2 L
Chloride 96 L
Carbon Dioxide 34 H
BUN 40 H
Creatinine 1.4 H
Glucose 116 H
Calcium 12.0 H D
Vital Signs:
Vital Signs
Temp Pulse Resp BP Pulse Ox
100.0 F 125 18 133/78 95
02/04/25 11:26 02/04/25 11:26 02/04/25 11:26 02/04/25 11:26 02/04/25 11:26
I&O
02/03/25 02/04/25 02/05/25
06:59 06:59 06:59
Intake Total 1740 / 1740 960 / 960
Output Total 2200 / 2200
Balance -460 / -460 960 / 960
Review of Systems
-
Respiratory: Denies Cough
Cardiac: Reports No Symptoms
Abdomen/GI: Reports No Symptoms
Physical Exam
-
General: Obese
HEENT: Negative Oxygen
Neuro: Awake, Alert and Oriented
Psych: Calm
--- NOTE | 2025-02-04 15:34 | CM ---
Met with patient and at bedside
Pharmacy verified: [facility] [address] [facility]
Lives w/ spouse; multilevel home; 5 steps with railing to enter; master bedroom and bathroom 1st floor
PLOF: was independent with personal care before present illness, driving 2 weeks ago; working from home 1 week ago
Transportation to be determined
Discharge plan to be determined pending hospital course
[2025-02-04 15:39] VITALS: BP 127/74
[2025-02-04] MEDS: ROXICODONE 5 MG PO (16:12)
[2025-02-04] MEDS: TYLENOL 650 MG PO ×2 (16:13→23:17)
--- NOTE | 2025-02-04 16:55 | W.CON.NEPH ---
Consultation
-
Date/Time Consultation Requested: 02/03/252107
Date/Time Consultation Performed: 02/04/25 1530
Requesting Provider: Cathy Looney
Performing Provider: Rosy Baeza
Reason for Consultation: Hypercalcemia and SHAHEED
Medical History
-
Chief Complaint: Gen weakness, fall
History of Present Illness:
44-year-old female with past medical history of recurrent metastatic melanoma, PE presenting to the emergency department with dizziness and a fall 3 times omn 02/03. She did hit the back of her head and CT head was negative for acute findings.
Patient was recently diagnosed in Dec with recurrent metastatic melanoma with mets to the axial and appendicular skeleton, lungs pleural cavity liver and a right retroperitoneal lymphadenopathy. She had a pathological fracture of the lumbar spine
with radicular symptoms. Prior to getting biopsy confirmation of malignancy she underwent lumbar fusion at [facility], complicated by PE s/p surgery and started on eliquis with resultant heavy menstrual blood loss requiring transfusion now
improved. She was treated with steroids. Patient started calcium supplementation for bone healing and she is currently on Decadron taper. SHe also completed radiation treatment to her back too. She has also been on cephalexin to treat some oozing
coming from the suture site which has improved and she has 1 more day to go.
Patient started immunotherapy last . Spouse reported that after the immunotherapy she had gotten weaker and perceptively so over the last 3 days. She had multiple falls. She denied syncopal episode. She was awake and alert but very weak
and they were unable to get her up so called Ambulance. She has not had any fevers or chills. She denies any urinary symptoms. She denies any GI losses including vomiting or diarrhea. She does have markedly diminished appetite.
In the emergency department she was afebrile, ECG showed sinus tachycardia at 124. Electrolytes notable for a sodium of 131, bicarb of 39, BUN of 47 and a creatinine of 1.7. Blood glucose was 125. Calcium was elevated at 15.6 with an albumin of
3.3. She was Started on IV fluids and received bisphosphonate, calcitonin during the night with improvement of the calcium to 12, cr 1.4. PTH and PTH RP both are pending. nephrology consultation for SHAHEED and hypercalcemia. she continues to be
tachycardic in sinus rhythm. Has ongoing back pain. Still short of breath and chest pain has rib metastasis.
Past Medical History
Metastatic melanoma, anxiety, PE,
Past Surgical History: Other (spinal fusion in lower back)
Social History
Tobacco: Non-Smoker
Alcohol: None
Living: With Family
Family History
no kidney disease
Family History: Not Pertinent
Allergies / Home Medications
Allergy/AdvReac Type Severity Reaction Status Date / Time
No Known Allergies Allergy Verified 02/03/25 16:36
�Medication �Instructions �Recorded �Confirmed �Type
oxycodone 5 mg tablet 5 mg PO Q4HPRN PRN moderate/severe 12/29/24 02/03/25 Rx
pain #20 tabs
gabapentin 300 mg capsule 300 mg PO BID Neurological 01/25/25 02/03/25 History
Condition
gabapentin 600 mg tablet 600 mg PO HS Neurological Condition 01/25/25 02/03/25 History
acetaminophen 325 mg tablet 650 mg PO Q6HPRN PRN mild pain 02/03/25 02/03/25 History
(Tylenol)
apixaban 5 mg tablet (Eliquis) 5 mg PO BID Blood Clot 02/03/25 02/03/25 History
Prevention/Tx
calcium citrate 1,260 mg PO BID Supplement 02/03/25 02/03/25 History
cephalexin 500 mg capsule 500 mg PO QID Infection 02/03/25 02/03/25 History
dexamethasone 2 mg tablet 4 mg PO BID INFLAMMATION 02/03/25 02/03/25 History
escitalopram oxalate 20 mg tablet 20 mg PO DAILY Mental 02/03/25 02/03/25 History
Health/Anxiety
famotidine 20 mg tablet (Pepcid) 20 mg PO DAILY Gastrointestinal 02/03/25 02/03/25 History
Issue
pantoprazole 40 mg tablet,delayed 40 mg PO DAILYPRN PRN gerd 02/03/25 02/03/25 History
release
polyethylene glycol 3350 17 gram 17 g PO DAILYPRN PRN constipation 02/03/25 02/03/25 History
oral powder packet
Review of Systems
-
All other systems: Negative unless noted
Physical Exam
Vital Signs
Vital Signs
Temp Pulse Resp BP Pulse Ox
100.6 F H 127 18 127/74 92
02/04/25 15:39 02/04/25 15:39 02/04/25 15:39 02/04/25 15:39 02/04/25 15:39
Lab Results
WBC 4.3 10^3/uL (4.8-10.8) L 02/04/25 08:06
RBC 2.54 10^6/uL (4.20-5.40) L 02/04/25 08:06
Hgb 7.6 g/dL (12.0-16.0) L 02/04/25 08:06
Hct 24.1 % (37.0-47.0) L 02/04/25 08:06
Plt Count 100 10^3/uL (130-400) L D 02/04/25 08:06
Sodium 134 mmol/L (135-145) L 02/04/25 08:06
Potassium 3.2 mmol/L (3.5-5.1) L 02/04/25 08:06
Chloride 96 mmol/L (98-107) L 02/04/25 08:06
Carbon Dioxide 34 mmol/L (22-30) H 02/04/25 08:06
BUN 40 mg/dl (7-17) H 02/04/25 08:06
Creatinine 1.4 mg/dL (0.6-1.0) H 02/04/25 08:06
eGFR 47.58 02/04/25 08:06
Glucose 116 mg/dl (70-99) H 02/04/25 08:06
Calcium 12.0 mg/dl (8.4-10.2) H D 02/04/25 08:06
Phosphorus 4.6 mg/dl (2.5-4.5) H 02/03/25 19:31
Albumin 2.9 g/dl (3.5-5.0) L 02/04/25 08:06
Physical Exam
General: Awake, Alert, Oriented and AOx3
HEENT: EOMI, Anicteric, Conjunctivae Clear and Facial Symmetry
Respiratory: Clear, Normal Excursion and Nonlabored Respirations
Cardiac: S1/S2 and Regular Rate/Rhythm (tachycardic, regular)
Breast: Deferred by me
Abdomen: Soft, Nontender and Nondistended
Musculoskeletal: No Edema
Skin: No Rash
Neuro: Nonfocal/Grossly Intact
Psych: Appropriate
Data Reviewed
-
Labs: Labs Reviewed by me, Discussed with Physician, Discussed with Patient and Discussed with Family
Assessment/Plan
-
IMP:
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
SHAHEED - Cr 1.7, baseline 0.5.
Metabolic alkalosis
Metastatic melanoma - Mets to bone currently on dexamethasone taper , immunotherapy last week
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
PE
Acute on chr pain
Hypoantremia
Vitamin D deficiency
Plan:
A/w sevre weakness , noted severe hypercalcemia and SHAHEED
Hypercalcemia likely from malignancy, bone metastases+ Calcium supplementation.
Continue normal saline at 150 cc/h and she is status post Zometa and calcitonin last night
Calcium improving to 12 , PTH and PTH RPR pending.
Vitamin D levels are low once calcium normalizes likely start vitamin D supplementation
For now hold calcium citrate and other calcium medications
replace potassium
SHAHEED-improving creatinine to 1.4 suspect prerenal, nonoliguric, UA relatively bland
Hyponatremia could be multifactorial, improving with the fluids suspect hypovolemia.
Blood pressures are stable however tachycardic
Follow hemoglobin, decreasing, also thrombocytopenic
suspect contraction metabolic alkalosis improving with the fluids normal saline
TSH significantly low with a normal free T4
Follow labs in the morning
Discussed with the patient and at bedside
Discussed with nursing and primary
--- NOTE | 2025-02-04 17:22 | PTOTSP ---
ST Acute Care Evaluation
Pt currently presents with clinical signs of fairly functional oropharyngeal parameters. Pt is at an elevated risk for aspiration given her current acute illness, generalized weakness, chronic metastatic melanoma with recent start on immunotherapy
that has made her even weaker, need for pain medication that could negatively impact her level of alertness, intermittent bouts of confusion, bone metastasis near C2 cervical spine (concern for impingement on CN XI and CN XII) per recent PET scan,
self-reported higher than average tendency to experience aspiration events with ingestion of liquids even prior to illness (i.e., lower threshold at baseline), and recent dx of GERD that is not fully/adequately managed at this time (still having s/s
on current med regimen, per pt).
Recommendations:
- Continue with regular solids and thin liquids with meds as tolerated.
- STRICT aspiration and reflux precautions: Pt must be fully awake and alert for all PO intale; HOB upright for all PO intake and for 60 minutes after PO intake; encourage pt to take small bites/sips and eat slowly; reduce distractions and encourage
pt not to talk with PO intake in mouth; discontinue PO intake if pt's level of alertness declines.
- SALES PROMOTION COORDINATOR to f/u re: re-inforce safe swallowing compensatory strategies as well as determine if pt would benefit from an instrumental swallow study.
[2025-02-04 19:20] VITALS: BP 104/64
[2025-02-04] MEDS: KCL 40 MEQ PO (19:39)
[2025-02-04 23:43] VITALS: BP 138/72
[2025-02-05] VITALS (11 sets, daily range): BP systolic 94–156; BP diastolic 65–89; BMI 30.8
[2025-02-05] MEDS: TYLENOL 650 MG PO ×4 (05:27→21:25)
--- NOTE | 2025-02-05 05:41 | W.PN.UPDATE ---
Update Note
Progress Note Update
-Patient complained of sob, febrile. SPO2 88% on 2 L of O2.
-Lactic, cbc, blood cultures and chest x-ray ordered
-duo nebs prn
-hgb level is 6.6 this am. blood consent, type and screen and one unit of blood ordered
Potassium 3.2 this am repleted.
[2025-02-05] MEDS: NSS 1000 IV (06:03)
[2025-02-05 06:27] LABS: Hematocrit 20.0 % (37.0-47.0); Hemoglobin 6.6 g/dL (12.0-16.0); Mean Corp Hgb Conc. 33.0 g/dL (33.0-37.0); Mean Corpuscular Volume 87.3 fL (81.0-99.0); Red Cell Dist. Width 14.6 % (11.5-14.5)
[2025-02-05 06:29] LABS: COVID-19 Antigen Negative (Negative)
[2025-02-05 07:08] LABS: Blood Urea Nitrogen 30 mg/dl (7-17); Calcium 10.0 mg/dl (8.4-10.2); Carbon Dioxide 30 mmol/L (22-30); Chloride 102 mmol/L (98-107); Estimated Creatinine Clearance 65 ml/min; Glucose 106 mg/dl (70-99); Magnesium 1.6 mg/dl (1.6-2.3); Potassium 3.2 mmol/L (3.5-5.1); Sodium 135 mmol/L (135-145); eGFR 52.00
--- NOTE | 2025-02-05 07:43 | PTCARENOTE ---
Pt with reoccurring fevers throughout night & treated accordingly-See MAR. Pt reports no significant changes in weakness or pain, somewhat subjectively SOB. VSS. SOUND EQUIPMENT MECHANIC notified. Labs & CXR ordered. This RN notified of critical lab results-SOUND EQUIPMENT MECHANIC
notified & blood consent obtained-placed in chart. VS rechecked-Pt is 88% on 2L, titrated to 3L to maintain SpO2>92% per order. Type & Screen ordered. See SOUND EQUIPMENT MECHANIC Report. Dayshift RN notified. Pt resting in bed, bed in lowest position and locked, call
michelle within reach & notified on POC-pt is agreeable to POC at this time.
[2025-02-05 07:47] LABS: Platelet Count 52 10^3/uL (130-400)
[2025-02-05] MEDS: PEPCID 20 MG PO (08:45)
[2025-02-05] MEDS: ELIQUIS 5 MG PO ×2 (08:45→20:01)
[2025-02-05] MEDS: DECADRON 4 MG PO (08:45)
[2025-02-05] MEDS: NEURONTIN 300 MG PO ×2 (08:45→20:01)
[2025-02-05] MEDS: KCL 40 MEQ PO (08:45)
[2025-02-05] MEDS: LEXAPRO 20 MG PO (08:45)
--- NOTE | 2025-02-05 09:07 | W.PN.ONC ---
Today's Communication / Plan
-
Calcium has improved w/ zometa, calcitonin and IVF. Continue to monitor daily
For 1u PRBCs, infusing now. Goal hgb > 7.5
Monitor platelets - if drop less than 50, would hold Eliquis. Would reduce Eliquis to 2.5mg BID if platelets > 50 and recurrent heavy menses
Will wean DEX to 2mg BID today and to 2mg po QD in 2-3 days ( or Tuesday, if able). Continue steroids decreases efficacy of immunotherapy
If pain worsens with steroid wean, would increase opioids
physical therapy for deconditioning, weakness, steroid myopathy
Suspect tumor fever -- blood and urine cultures pending. WBC diff pending - would need IV abx if ANC < 1000
plan d/w patient, , nurse at bedside
Impression
Impression
Metastatic Melanoma
Hypercalcemia
Pancytopenia - from dilution, malignancy, menstrual blood loss
Heavy menses from Eliquis
RUL PE, 01/07/25, small
Weakness, deconditioning
Fever, suspect tumor fever
Plan
Plan
Calcium has improved w/ zometa, calcitonin and IVF. Continue to monitor daily
For 1u PRBCs, infusing now. Goal hgb > 7.5
Monitor platelets - if drop less than 50, would hold Eliquis. Would reduce Eliquis to 2.5mg BID if platelets > 50 and recurrent heavy menses
Will wean DEX to 2mg BID today and to 2mg po QD in 2-3 days ( or Tuesday, if able). Continue steroids decreases efficacy of immunotherapy
If pain worsens with steroid wean, would increase opioids
physical therapy for deconditioning, weakness, steroid myopathy
Suspect tumor fever -- blood and urine cultures pending. WBC diff pending - would need IV abx if ANC < 1000
plan d/w patient, , nurse at bedside
Subjective/Objective
Subjective/Objective
Patient with fevers over night, no infecious symptoms.
Poor appetite, generally weak
at bedside
Vital Signs:
Vital Signs
Temp Pulse Resp BP Pulse Ox
101.8 F H 128 18 128/79 93
02/05/25 08:50 02/05/25 08:50 02/05/25 08:50 02/05/25 08:50 02/05/25 07:30
Lab Results:
Laboratory Data
WBC 2.4 10^3/uL (4.8-10.8) L* 02/05/25 05:55
Hgb 6.6 g/dL (12.0-16.0) L* 02/05/25 05:55
Plt Count 52 10^3/uL (130-400) L D 02/05/25 05:55
eGFR 52.00 02/05/25 05:55
Orders
Orders
Orders From Last 24 Hours
02/05/25 07:49
Add On- LAB Routine
02/05/25 20:00
Dexamethasone [Decadron] 2 mg PO Q12
[2025-02-05 10:34] LABS: Absolute Neutrophils -Man Diff 1.9 10^3/uL (1.4-6.5); Total Cells Counted 100
[2025-02-05 10:35] LABS: Platelets Checked Yes
[2025-02-05 10:37] LABS: Anisocytosis 1+; Hypochromasia 1+; Normal RBC Morphology No
[2025-02-05] MEDS: ZOSYN 50 IV (10:48)
[2025-02-05] MEDS: LASIX 20 MG IV (11:26)
--- NOTE | 2025-02-05 11:33 | W.PN.HOSP.TC ---
Today's Communication/Plan
-
see note
Assessment / Plan
Assessment / Plan
1. Hypercalcemia - Improving slowly
-Admission Ca of 15.6, Vit D 25 OH of <12.8, PTH level pending.
-suspect hypercalcemia of malignancy complicated by likely calcium vitamin D supplementation
-Got dose of zoledronic acid in ER
-Got dose of calcitonin 4u/kg in ER as well
-Stopping further IVF
-Calcium has normalized.
-Await further nephro input
2. SHAHEED - Improving
-Presumed due to decreased oral intake and hypercalcemia related
-Avoid nephrotoxic medication
-Improved with IVF, monitor
3. Hyponatremia
-improved sodium level. monitor
4. Metastatic melanoma
Pancytopenia
- Being weaned off of steroid to dexamethasone 2 mg twice daily today and then 2 mg daily for 2 3 days.
- continue cephalexin for suture site irritation/infection to complete in 1 one day, no signs of systemic infection
- continue pain control with gabapentin 300 bid for now pending renal function
- continue opioid
- Oncologist evaluated as well. Patient has been started on immunotherapy and would review if side effect of immunotherapy
- patient getting one u PRBC today for hbg of 6.6. As patient feeling dyspneic will provide IV Lasix 20 mg post blood transfusion.
5. h/o of PE
- Maintain on home dose of Eliquis
6. Hypokalemia
- maintain on PRN potassium
7. Aspiration pneumonia
Hypoxic resp insufficiency
Immunocompromised state
-patient had an episode of aspiration yesterday on clear liquid . ST cleared for reg diet with aspiration precaution.
-Chest xr showing pulmonary metastases, small to moderate right pleural effusion
-patient have neutropenia/fever and immunocompromised .
-f/u blood cs report
-started patient on zosyn, will need to add vancomycin if clinically warranted,
- Patient also developing hypoxic respite insufficiency possibly from IV fluid provided causing congestion with added changes of pneumonia possibly.
Full code
Care plan discussed with nephrology
Care plan discussed with patient spouse at bedside
Total time spent 55-minute
Anticipated Discharge: > 48 hours
Subjective/Interval History
-
Date of Service: February 05, 2025
spiking fever overnight
feeling dyspneic, on o2 through NC
back pain managble
Objective Data
-
Labs:
Laboratory Results
02/05/25
05:55
WBC 2.4 L*
Hgb 6.6 L*
Hct 20.0 L*
Plt Count 52 L D
Sodium 135
Potassium 3.2 L
Chloride 102
Carbon Dioxide 30
BUN 30 H
Creatinine 1.3 H
Glucose 106 H
Calcium 10.0 D
Vital Signs:
Vital Signs
Temp Pulse Resp BP Pulse Ox
99.7 F 121 18 129/77 93
02/05/25 10:47 02/05/25 10:47 02/05/25 10:47 02/05/25 10:47 02/05/25 07:30
I&O
02/04/25 02/05/25 02/06/25
06:59 06:59 06:59
Intake Total 1740 / 1740 4732 / 4732 250 / 250
Output Total 2200 / 2200 2725 / 2725
Balance -460 / -460 2006 250 / 250
Review of Systems
-
Respiratory: Reports Trouble Breathing; Denies Cough
Cardiac: Reports No Symptoms
Abdomen/GI: Reports No Symptoms
Physical Exam
-
General: Obese
HEENT: Negative Oxygen
Respiratory: Clear to Auscultation
Cardiac: Regular Rhythm, S1/S2 and Tachycardic
Neuro: Awake, Alert and Oriented
Psych: Calm
--- NOTE | 2025-02-05 13:11 | W.PN.NEPH.PH ---
Today's Communication / Plan
-
stop IVF
follow labs , repalce dk
Assessment/Plan
-
IMP:
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
SHAHEED - Cr 1.7, baseline 0.5.
Metabolic alkalosis
Metastatic melanoma - Mets to bone currently on dexamethasone taper , immunotherapy last week
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
PE
Acute on chr pain
Hypoantremia
Vitamin D deficiency
Plan:
A/w sevre weakness , noted severe hypercalcemia and SHAHEED
Hypercalcemia likely from malignancy, bone metastases+ Calcium supplementation.
aixa now normalized and will d/c IVF , she is status post Zometa on admit
PTH and PTH RPR pending.
Vitamin D levels are low once calcium normalizes likely start vitamin D supplementation
For now hold calcium citrate and other calcium medications
SHAHEED-improving creatinine to 1.3 suspect prerenal, nonoliguric, UA relatively bland
Hyponatremia could be multifactorial, improving with the fluids suspect hypovolemia.
Blood pressures are stable however tachycardic
anemia - PRBC today, given sob ok for lasix if needed
CXR noted met lesion and small to mod pleural effusion
febrile and pancytoepnia , onc follows , IV abx per primary, cx sent
TSH significantly low with a normal free T4
Follow labs in the morning, replace k
Discussed with the patient and at bedside
Discussed with primary
-
-
Date of Service: February 05, 2025
CC / HPI / ROS
-
Chief Complaint:
SHAHEED, hypercalcemia
History of Present Illness:
aixa better at 10
cr down to 1.3, non oliguric
hb low 6.6, plt low 52, WBC 2.4
on O2 and remains tachy
febrile
Review of Systems:
feels tired, weak
sob and cp when moves
Labs
-
Labs:
WBC 2.4 10^3/uL (4.8-10.8) L* 02/05/25 05:55
RBC 2.29 10^6/uL (4.20-5.40) L 02/05/25 05:55
Hgb 6.6 g/dL (12.0-16.0) L* 02/05/25 05:55
Hct 20.0 % (37.0-47.0) L* 02/05/25 05:55
Plt Count 52 10^3/uL (130-400) L D 02/05/25 05:55
Sodium 135 mmol/L (135-145) 02/05/25 05:55
Potassium 3.2 mmol/L (3.5-5.1) L 02/05/25 05:55
Chloride 102 mmol/L (98-107) 02/05/25 05:55
Carbon Dioxide 30 mmol/L (22-30) 02/05/25 05:55
BUN 30 mg/dl (7-17) H 02/05/25 05:55
Creatinine 1.3 mg/dL (0.6-1.0) H 02/05/25 05:55
eGFR 52.00 02/05/25 05:55
Glucose 106 mg/dl (70-99) H 02/05/25 05:55
Calcium 10.0 mg/dl (8.4-10.2) D 02/05/25 05:55
Phosphorus 4.6 mg/dl (2.5-4.5) H 02/03/25 19:31
Uut-A-Qejycnvpsys Pept 293 pg/ml 02/05/25 05:55
Albumin 2.9 g/dl (3.5-5.0) L 02/04/25 08:06
Physical Exam
-
Vital Signs:
Vital Signs
Temp Pulse Resp BP Pulse Ox
98.1 F 117 18 133/65 94
02/05/25 11:05 02/05/25 11:05 02/05/25 11:05 02/05/25 11:05 02/05/25 11:05
Cardiovascular:: Regular rate and rhythm (tachy)
Respiratory:: Bilateral: CTA (anteriorly, decreased)
Lung Excursion:: Abnormal
Abdomen:: Nontender and Soft
Extremity Edema:: None: Bilateral:
Williamson Catheter: No
[2025-02-05] MEDS: STERILE WATER FOR INJECTION 10 ML IV ×2 (14:57→21:18)
[2025-02-05] MEDS: MAXIPIME 2000 MG IV ×2 (14:57→21:18)
[2025-02-05] MEDS: BENADRYL 25 MG IV (14:58)
--- NOTE | 2025-02-05 15:42 | PHA.VAN.IN ---
Assessment
- Assessment
Renal Function: SCR Appears Elevated from baseline (SCR decreasing from admission 1.7-->1.4-->1.3 vs ~0.5-0.6 in Oct)
Concomitant Antimicrobials: cefepime
Plan
- Plan
Initial / Loading Dose: 2000mg - administration pending
Maintenance Regimen: dosing by level
Monitoring: random 02/06 06
MRSA Screen: Ordered per protocol
Patient's SCR improving and may be able to schedule dosing tomorrow - possibly Q12H interval
Next dose not due until tomorrow AM so will obtain level prior to further dosing after load
Pharmacokinetics Vancomycin I
- -
Patient Age: 44
Patient Sex: Female
Vancomycin Day #: 1
Indication: Neutropenic Fever
Requesting Provider: Dr. Murillo
Pertinent Antimicrobial Allergies:
NKDA
Height / Weight:
Height 5 ft 8 in
Actual Weight 91.8 kg
Pertinent Past Medical History: BMI ~31, Metastatic Melanoma
- Vital Signs / Lab Results
Temp Pulse Resp BP Pulse Ox
103.1 F H 136 18 156/85 98
02/05/25 15:10 02/05/25 15:10 02/05/25 15:10 02/05/25 15:10 02/05/25 15:10
Lab Results - Hematology
02/03/25 02/04/25 02/05/25
16:57 08:06 05:55
WBC 5.5 4.3 L 2.4 L*
Band Neutrophils 11 H
Lab Results - Chemistry
02/03/25 02/04/25 02/05/25
16:57 08:06 05:55
BUN 47 H 40 H 30 H
Creatinine 1.7 H 1.4 H 1.3 H
Estimated Creat Clear 50 61 65
Albumin 3.3 L 2.9 L
02/05/25
05:55
Lactic Acid 1.6
[2025-02-05] MEDS: ROXICODONE 5 MG PO (16:28)
[2025-02-05] MEDS: VANCOCIN 540 MG IV (16:46)
[2025-02-05] MEDS: DECADRON 2 MG PO (20:01)
[2025-02-05] MEDS: LOPRESSOR 5 MG IV (20:05)
--- NOTE | 2025-02-05 21:53 | PTCARENOTE ---
Addendum entered by Radha Calvillo RN 02/05/25 23:23:
Pt continues c/o SOB and has labor breathing. HOT METAL CAR OPERATOR transmission line engineer notified and upgraded to IMU. Pt seen by HOT METAL CAR OPERATOR.
Addendum entered by Radha Calvillo RN 02/05/25 23:01:
Temp came down to 101. HR continues to be 130's. HOT METAL CAR OPERATOR notified as Pt c/o SOB. O2 increased to 6L SaO2 92%. One time dose of 1 mg morphine Iv given for SOB and Resp tx given.
Original Note:
Pt AAOx3, drowsy, withdrawn. ST 130's in the tele monitor. Lung sounds are diminished, labor breathing, tachypneic, SaO2 92-93% 4L NC. Dyspneic w/ exertion and rest. HOT METAL CAR OPERATOR notified about pt's HR and Temp. Pt was given one time dose 5 mg Metoprolol IV
for HR which brought it down to the 120's. Pt was given PO Tylenol and placed Ice pack on her body for a temp of 103. Will follow up with temp and continue w/ tx plan.
[2025-02-05] MEDS: MORPHINE SULFATE 1 MG IV (22:42)
[2025-02-05] MEDS: DUONEB 3 ML INH (22:48)
[2025-02-06] VITALS (75 sets, daily range): BP systolic 33–181; BP diastolic 13–130; BMI 31.9
[2025-02-06] MEDS: VALIUM INJECTION 2 MG IV ×3 (00:30→16:15)
[2025-02-06 00:43] LABS: Hematocrit 21.9 % (37.0-47.0); Hemoglobin 7.0 g/dL (12.0-16.0)
--- NOTE | 2025-02-06 00:43 | W.PN.UPDATE ---
Addendum entered and electronically signed by ISAMAR Cohen 02/06/25 06:59:
Temp down to 100.3. AM blood work pending results as of 0700. updated by me via telephone. He is coming over to see her.
Addendum entered and electronically signed by ISAMAR Cohen 02/06/25 04:32:
0030 Temp climbing to 102.8 Ofirmiv IV given and cooling blanket applied. 0130: Stat Hgb 7 and one unit PRBC ordered. BP maintaining MAP >65 so levophed being held.
Original Note:
Update Note
Progress Note Update
2130: Pt noted with fluctuating temps up to 103F. HR continues 130s Sinus, tachypnea on 4 L NC. tylenol and ice packs applied. At 2215 Temp down to 100.2 but oxygen increased to 6 L nc for 94%. Morphine 1 mg IV given for tachypnea, duoneb also
provided. 2309: Patient BP 97/67. Discussed with patient about transferring to IMU bed so we can start levophed at low dose to support bp while we give her another dose of Lasix to help diurese. She also has anxiety at baseline so will add Valium IV
prn. Stat HH ordered. Patient transferred at midnight.
[2025-02-06] MEDS: OFIRMEV 100 IV ×2 (00:53→21:30)
--- NOTE | 2025-02-06 01:07 | PTCARENOTE ---
Received pt as a transfer, pt pulled over to our bed. Pt is AAOx3, anxious, flat, withdrawn. Temp on arrival 102.8, ARCHITECTURE ANALYST notified Ofirmev ordered x1 and cooling blanket ordered and placed under the pt (see worklist). Pt on 6L NC O2 sat 94%, lungs
diminished, tachypneic, LOTT and at rest. Pw in place for stress incont. PRN Valium given for anxiety (see MAR). CHG bath provided. Call michelle in reach. Safe environment maintained.
--- NOTE | 2025-02-06 03:05 | PTCARENOTE ---
Midline placed by IVT. 1 unit PRBCs infusing. 15 min VS check complete, VSS.
[2025-02-06] MEDS: MORPHINE SULFATE 1 MG IV ×3 (04:58→21:05)
[2025-02-06] MEDS: STERILE WATER FOR INJECTION 10 ML IV ×2 (05:01→15:10)
[2025-02-06] MEDS: MAXIPIME 2000 MG IV ×2 (05:01→15:10)
[2025-02-06] MEDS: LASIX 20 MG IV (05:20)
[2025-02-06 07:08] LABS: Blood Urea Nitrogen 31 mg/dl (7-17); Calcium 8.7 mg/dl (8.4-10.2); Carbon Dioxide 26 mmol/L (22-30); Chloride 99 mmol/L (98-107); Estimated Creatinine Clearance 62 ml/min; Glucose 142 mg/dl (70-99); Potassium 3.4 mmol/L (3.5-5.1); Sodium 132 mmol/L (135-145); eGFR 47.58
[2025-02-06 07:20] LABS: Hematocrit 26.7 % (37.0-47.0); Hemoglobin 8.6 g/dL (12.0-16.0); Mean Corp Hgb Conc. 32.2 g/dL (33.0-37.0); Mean Corpuscular Volume 94.0 fL (81.0-99.0); Red Cell Dist. Width 14.0 % (11.5-14.5)
[2025-02-06 07:57] LABS: Absolute Neutrophils -Man Diff 2.0 10^3/uL (1.4-6.5); Platelet Count 29 10^3/uL (130-400)
[2025-02-06] MEDS: DECADRON 2 MG PO (07:57)
[2025-02-06] MEDS: LEXAPRO 20 MG PO (07:57)
[2025-02-06] MEDS: PEPCID 20 MG PO (07:57)
[2025-02-06] MEDS: ELIQUIS 5 MG PO (07:57)
[2025-02-06] MEDS: TYLENOL 650 MG PO ×2 (07:57→12:02)
[2025-02-06] MEDS: NEURONTIN 300 MG PO (07:57)
[2025-02-06 07:58] LABS: Acanthocytes 2+; Anisocytosis FEW; Hypochromasia 1+; Normal RBC Morphology No; Ovalocytes FEW; Platelets Checked Yes; Polychromasia 1+; Total Cells Counted 100
--- NOTE | 2025-02-06 08:05 | PTCARENOTE ---
Assumed care of pt at 0715 following shift report. Pt awake and resting quietly, at bedside. Jpoo=[id number]. Tylenol 650mg PO given. Pt on O2 at 6l/min w/ Pox 92%. Pt reports feeling SOB. RR low 30's. HR low 130's. Morphine 1mg IV given for SOB.
Pt noted to have 15bt run VT on keying machine operator. TT to Dr Castro w/ update in rhythm and K=3.4 on AM labs. Stat order for add on to AM labs for Magnesium level placed. Orders for K+ and Mag+ received. Physical assessment completed as documented and
comfort care provided. Call miguel angel w/in pt reach and safe environment maintained.
[2025-02-06 08:25] LABS: Magnesium 1.5 mg/dl (1.6-2.3)
[2025-02-06] MEDS: KCL 270 MEQ IV (08:35)
[2025-02-06] MEDS: MAGNESIUM SULFATE 50 IV (08:36)
--- NOTE | 2025-02-06 08:43 | PTOTSP ---
Reviewed chart and noted pt transferred to ICU overnight. PT order was not continued upon transfer. Will need new orders for PT and OT when stable to begin therapy activity.
--- NOTE | 2025-02-06 09:08 | CON.ID ---
Addendum entered and electronically signed by Joana Wayne MD 02/06/25 10:48:
Skin: mix of blanching and nonblanching erythematous macules most prominent on the back, also on arms, chest and left foot
Original Note:
Consultation
-
Date/Time Consultation Requested: 02/06/25 8:08
Date/Time Consultation Performed: 02/06/25 9:08
Requesting Provider: Dr Castro
Performing Provider: Dr Wayne
Reason for Consultation: sepsis, immunocmpromised patient
Chief Complaint / Past History
Chief Complaint
weakness
History of Present Illness
Ms Lundy is a 44 year old female with recurrent, metastatic melanoma (bone, lungs, pleura, liver, retroperitoneal) s/p radiation. She was diagnosed with tumor fevers around the time that she started radiation, these generally responded well to
tylenol. She has L2 compression fracture with extensive extraosseous tumor in the right paraspinal, right neural foramen and epidural space with compression of the conus and cauda equina nerve roots. Bone biopsy metastatic melanoma. 01/03/25
underwent spinal decompression of L2 laminectomy with fusion of T12-L3 at [facility]. Course was complicated by PE initially treated with eliquis but held due to heavy menstrual bleeding. She was started on steroids for bilateral leg pain
and is currently on dexamehtasone 4 mg BID. Started radiation therapy 2 weeks ago and started Opdivo. Subsequently developed profound fatigue and had multiple falls, fatigue and lightheadedness. Prior to the fall she felt dizzy and then her legs
gave way, no syncope. No headache, sinus tenderness, sore throat, cough, sputum production, nausea, vomiting, dysuria, urgency or frequency. palpitations or chest pain.
Of note about two weeks ago she developed scant, clear oozing from her surgical site. There was no surrounding erythema, warmth, visible dehiscence. She was scheduled to see her neurosurgeon for a wound check however due to other complication she
was not able to attend the visit. they shared photos with her surgeon Dr Black and she was started on a 10 day course of cephalexin 500 mg po qid for the oozing from her suture site. Within a few days the oozing stopped. Her last day of keflex was
the second day she was here.
In the ER she was initially afebrile, bp stable, tachycardic with HRs in the 110s-120s, saturating 94% on room air. WBC 5.5, hgb 9.1, plt 135, Na 131, Cr 1.7 (baseline 0.5), calcium 15.6, t bili 0.6, ast 39, alt 31, alk phos 106. She was started
on IVF, bisphosphonate, calcitonin, calcium supplements were stopped. Then 02/05 HD2 she developed fevers to a tmax of 102.9 orally, he wbc count declined to 4.3 and then the next day further declined to 2.4, ANC 1.9 and 2.0, xray lumbar spine
01/25 spinal fusion without evidence of hardwear complication, moderate compression fx L2, xray thoracic spine compression fx of T8, extensive airspace opacities and small/moderate right pleural effusion similar to PET likely due to malignancy, CT
head without contrast no abnormalities, CXR 02/04: extensive bilateral nodular opacities, moderate right sided pleural effusion, atelectasis vs pneumonia, repeat CXR 02/05 unchanged. 02/04 she had an episode of aspiration while drinking water.
Blood cultures x2 were obtained. A Nasal screen for MRSA was preformed and not detected. She was started on zosyn and vancomcyin 02/05 for suspected aspiration pneumonia. She developed persistent hypotension and was transferred to the IMU for
levophed infusion and diuresis with lasix. She remains on decadron dose titrated down to 2 mg PO BID. She was additionally started on cooling blanket and rectal probe to monitor Ts. She was reported to develop a rash with a mix of blanching and
nonblanching lesions most prominent on the back on the zosyn and it was switched to cefepime. ID is consulted for assistance with management.
Past History
Additional Past Medical History:
anxiety
Additional Past Surgical History:
as per hpi
Allergy History:
No Known Allergies Allergy (Verified 02/03/25 16:36)
Medications Reviewed: Yes
Social History
Tobacco: Non-Smoker
Alcohol: None
Personal:
Family History
Family History: Not Pertinent
Review of Systems
Review of Systems
Constitutional: Reports Fatigue; Denies Fever, Weight Gain, Weight Loss or Chills
EENT: Reports No Symptoms
Respiratory: Reports No Symptoms
Cardiac: Denies Chest Pain, Diaphoresis, Palpitations or Syncope
Abdomen/GI: Reports Nausea; Denies Vomiting, Diarrhea, Bloody Stools or Black Stools
: Reports No Symptoms
Musculoskeletal: Reports No Symptoms
Skin: Reports No Symptoms
Neurological: Reports Weakness
Endocrine: Reports No Symptoms
Hematologic/Lymphatic: Reports No Symptoms
Psych: Reports No Symptoms
Vital Signs
Temp Pulse Resp BP Pulse Ox
100.3 F 128 35 112/92 94
02/06/25 07:08 02/06/25 06:00 02/06/25 06:00 02/06/25 06:00 02/06/25 06:00
Physical Exam
Physical Exam
Constitutional: No Acute Distress
Cardiovascular: Regular Rate and S1/S2; Negative Murmur or Rub
Pulmonary: Clear and Symmetric; Negative Wheezes, Rales or Rhonchi
Gastrointestinal: Soft, Non Tender, Non Distended and Normal Bowel Sounds
Skin: Warm and Dry; Negative Rash or Jaundice
Wound: Other (surgical site without dehiscence, there is scant slough appearing along the surgical site, no oozing on the dressing, no surrounding erythema, no tenderness along the sides of the surgical site)
Lab / Diagnostic Study Results
02/06/25 06:26
02/06/25 06:26
Abs Immat Gran (auto) 0.3 10^3/uL (0-0.05) H 02/03/25 16:57
Absolute Neuts (auto) 4.3 10^3/uL (1.4-6.5) 02/03/25 16:57
Absolute Lymphs (auto) 0.5 10^3/uL (1.2-3.4) L 02/03/25 16:57
Absolute Monos (auto) 0.4 10^3/uL (0.1-0.6) 02/03/25 16:57
Absolute Basos (auto) 0.0 10^3/uL (0-0.2) 02/03/25 16:57
Total Counted 100 02/06/25 06:26
Immature Gran % 6.0 % (0-0.5) H 02/03/25 16:57
Neutrophils % 77.3 % (42.2-75.2) H 02/03/25 16:57
Lymphocytes % 9.5 % (20.5-51.1) L 02/03/25 16:57
Monocytes % 6.6 % (1.7-9.3) 02/03/25 16:57
Eosinophils % 0.2 % (0-6) 02/03/25 16:57
Basophils % 0.4 % (0-2) 02/03/25 16:57
Abs Neuts (Manual) 2.0 10^3/uL (1.4-6.5) 02/06/25 06:26
Segmented Neutrophils 55 % (42-75) 02/06/25 06:26
Band Neutrophils 31 % (0-3) H D 02/06/25 06:26
Lymphocytes (Manual) 5 % (20-51) L 02/06/25 06:26
Eosinophils (Manual) 2 % (0-6) 02/06/25 06:26
Lactic Acid 1.6 mmol/L (0.7-2.0) 02/05/25 05:55
Microbiology Results
Micro:
02/05/25 06:20 Blood Culture - Preliminary
Blood/Venous No Growth in 24 hours- Final report to follow
02/05/25 05:55 Blood Culture - Preliminary
Blood/Venous No Growth in 24 hours- Final report to follow
02/05/25 16:14 Nasal Screen MRSA (PCR) - Final
Nose MRSA not detected - performed by PCR methodology.
Assessment / Plan
Fever
Shock - starting levophed
SHAHEED
Metastatic Melanoma on Immunotherapy Opdivo (anti-pd-1 antibody, Immune check point inhibitor)
Leukopenia without neutropenia
Rash with zosyn
- patient reports fevers are higher and more persistent than her previous tumor fevers, additionally requiring pressor support; overall most likely etiology seems to be developing aspiration pneumonia
- blood cultures x2 in progress
- sputum culture if able to produce
- influenza and covid screens
- ua reflex to culture
- not colonized with MRSA based on MRSA PCR
- lumbar surgical site without evidence of infection at this time
- continue cefepime, stop vancomycin
- added zosyn to allergy list
Also
Hypercalcemia
Care Review
Plan reviewed with: Nurse
--- NOTE | 2025-02-06 10:00 | PTCARENOTE ---
Dr Cardoso in room to talk w/ pt regarding GOC. Pt stated she is not prepared to make a decision about DNR at this time. Offered to contact hospital manager financial reporting for pt and her . Pt declined stating 'we are not [employer]'. Pt continued to decline
offer of manager financial reporting even after informed that manager financial reporting does not have to provide spiritual support but can just provide emotional support. Pt encouraged to notify staff if at any point she feels like she or her family would benefit from manager financial reporting visit.
Pt verbalized understanding.
[2025-02-06] MEDS: LEVOPHED 250 IV ×2 (10:18→19:56)
--- NOTE | 2025-02-06 10:30 | PTCARENOTE ---
Pt w/ several loose/liquid BM's. Pericare provided. Rectal probe Soze=723.7F Cooling blanket restarted. Pt's SBP 70-80's. Dr Castro notified via TT and Levophed gtt started at 1020 per orders.
--- NOTE | 2025-02-06 10:30 | W.PN.ONC2 ---
Today's Communication / Plan
-
Long GOC discussion with Solitario, patient, nurse Adilia.
Patient with poor prognosis rapidly progressive melanoma.
Continue supportive care but her medical condition is deteriorating.
Reviewed prognosis (poor) and discussed living will. She is considering DNR but wants to think about it.
Recommenced family be notified to com in from out of town as her condition might deteriorate rapidly over the next few hours to days.
Contact time 53 minutes.
Impression
Impression
RApidly progressive metastatic Melanoma
Hypercalcemia
Pancytopenia - suspect from malignancy
Heavy menses from Eliquis
RUL PE, 01/07/25, small
Weakness, deconditioning
Fever, suspect tumor fever
Plan
Plan
Calcium has improved w/ zometa, calcitonin and IVF.
S/P 2u PRBCs.
Stop Eliquis with PLT now 29,000. Bleeding risk > benefits with small PE.
Will wean DEX to 2mg BID today and to 2mg po QD in 2-3 days ( or Tuesday, if able). Continue steroids decreases efficacy of immunotherapy
So far all cultures negative. Suspect all organ failure from rapidly progreeive malignancy.
plan d/w patient, , nurse at bedside
Subjective/Objective
Chief Complaint
ACS Heme Onc
Subjective
Patient remains very weak. Low BP and is on pressors. On O2 for low SpO2. Denies pain.
Vital Signs:
Vital Signs
Temp Pulse Resp BP Pulse Ox
102.7 F H 128 35 112/92 94
02/06/25 09:59 02/06/25 06:00 02/06/25 06:00 02/06/25 06:00 02/06/25 06:00
Lab Results:
Laboratory Data
WBC 2.4 10^3/uL (4.8-10.8) L* 02/06/25 06:26
Hgb 8.6 g/dL (12.0-16.0) L D 02/06/25 06:26
Plt Count 29 10^3/uL (130-400) L* D 02/06/25 06:26
eGFR 47.58 02/06/25 06:26
Physical Exam
chronically weak woman in NAD
Cardiology: Other (Tachycardia, hypotensive)
Pulmonary: Clear
--- NOTE | 2025-02-06 10:46 | PTCARENOTE ---
Order to Hold Eliquis noted- Dr Cardoso aware of Platelets= 29 and that pt received AM dose of Eliquis. Per TT from Dr Cardoso, no need to repeat Platelet count until tomorrow AM labs.
[2025-02-06 11:21] LABS: COVID-19 Antigen Negative (Negative)
--- NOTE | 2025-02-06 12:00 | PTCARENOTE ---
Multiple family/friends visiting in room. Pt remains alert, no new complaints offered. Titrating Levophed for MAP >65- BP labile as documented. Cooling [place] continues. Pt medicated w/ Tylenol for continued temp elevation.
--- NOTE | 2025-02-06 12:51 | W.PN.HOSP.TC ---
Today's Communication/Plan
-
see note
Assessment / Plan
Assessment / Plan
1. Hypercalcemia - Resolved
-Admission Ca of 15.6, Vit D 25 OH of <12.8, PTH of 10
-suspect hypercalcemia of malignancy complicated by likely calcium vitamin D supplementation
-Got dose of zoledronic acid in ER
-Got dose of calcitonin 4u/kg in ER as well
- Further IV was been discontinued
-Calcium has normalized.
-Await further nephro input
2. SHAHEED - Improving
-Presumed due to decreased oral intake and hypercalcemia related
-Avoid nephrotoxic medication
-IV fluid has been discontinued
3. Hyponatremia
-improved sodium level. monitor
4. Metastatic melanoma
Pancytopenia
- Being weaned off of steroid to dexamethasone 2 mg twice daily today and then 2 mg daily for 2 3 days.
- continue cephalexin for suture site irritation/infection to complete in 1 one day, no signs of systemic infection
- continue pain control with gabapentin/opioids
- Oncologist evaluated as well. Patient has been started on immunotherapy and would review if side effect of immunotherapy
- s/p 2 u PRBC yesterday, monitor Hbg for further need of repeat transfusion
- Platelet drifted down to 29,000, Eliquis has been on hold
5. h/o of PE
- Eliquis hold with worsening thrombocytopenia
6. Hypokalemia
-K 3.4 today, replaced with 40meq K rider
7. Septic shock secondary to Aspiration pneumonia
Acute Hypoxic respiratory failure
Immunocompromised state
- patient had an episode of aspiration yesterday on clear liquid . ST cleared for reg diet with aspiration precaution.
- Chest xr showing pulmonary metastases, small to moderate right pleural effusion
- patient have neutropenia/fever and immunocompromised .
- Blood culture remains negative
- Patient have developed new Hypotension and associated lethargy/toxic encephalopathy
- Patient started on small dose of Levophed
- Patient had possible allergic skin reaction to penicillin and thus has to be switched to regimen of Vanco and cefepime
- ID physicians have consulted for further
- CT chest without IV contrast as ordered to better evaluate pulmonary parenchyma
8. Episode Non sustained VT
- 15 beats run of VT
- have hypokalemia and hypomagnesemia, repleting with 40meq K and 2g Mg
Full code
Discussed with infectious disease physician
Patient spouse at bedside care discussed as well
Total critical care time 38 mins. Total critical care time documented does not include time spent on separately billed procedures or the services of residents, students, nurses or physician assistants. I personally saw and examined the patient. I
have reviewed all diagnostic interpretations and treatment plans as written. I was present for the jeff portions of any procedures performed and the inclusive time noted in any critical care statement. Critical care time includes patient management
by me, time spent at the patients bedside, time to review lab and imaging results, discussing patient care, documentation in the medical record, and time spent with the family or caregiver.
Anticipated Discharge: > 48 hours
Subjective/Interval History
-
Date of Service: February 06, 2025
patient continues to remains dyspneic and in mild respirtory disterss
oxygen requirement remains in 4-5L NC , which is new
continues to have high grade fever overnight
Objective Data
-
Labs:
Laboratory Results
02/06/25
06:26
WBC 2.4 L*
Hgb 8.6 L D
Hct 26.7 L
Plt Count 29 L* D
Sodium 132 L
Potassium 3.4 L
Chloride 99
Carbon Dioxide 26
BUN 31 H
Creatinine 1.4 H
Glucose 142 H
Calcium 8.7
Vital Signs:
Vital Signs
Temp Pulse Resp BP Pulse Ox
101.1 F H 130 34 142/74 94
02/06/25 12:00 02/06/25 11:00 02/06/25 11:00 02/06/25 11:00 02/06/25 11:00
I&O
02/05/25 02/06/25 02/07/25
06:59 06:59 06:59
Intake Total 4732 / 4732 2680 / 2680 321.0 / 321.0
Output Total 2725 / 2725 2150 / 2150
Balance 2006 530 / 530 321.0 / 321.0
Review of Systems
-
Respiratory: Reports Cough and Trouble Breathing
Cardiac: Reports Palpitations
Abdomen/GI: Reports Diarrhea; Denies Abdominal Pain, Nausea or Vomiting
Physical Exam
-
HEENT: Oxygen
Respiratory: Rhonchi
Cardiac: Regular Rhythm, S1/S2 and Tachycardic
GI: Soft, Nontender and Nondistended
Musculoskeletal: No Edema
Neuro: Awake, Alert and Oriented
--- NOTE | 2025-02-06 13:19 | PTCARENOTE ---
Pt to radiology for ordered CT Chest w/ RN in attendance.
--- NOTE | 2025-02-06 14:20 | CM ---
GOC discussion by Oncology, poor prognosis, rapidly progressive melanoma, medical condition is deteriorating, poor prognosis, Considering DNR, patient wants to think about DNR. Oncology rec for family to be notified to come in from out of town as
her condition might deteriorate rapidly over the next few hours to days. Many family members visiting.
--- NOTE | 2025-02-06 16:18 | PTCARENOTE ---
Pt expressing feeling anxious and requesting ordered prn dose of Valium 2mg IV- given now. Pt's family/friends remain bedside.
--- NOTE | 2025-02-06 18:08 | PTCARENOTE ---
Pt w/ increased WOB, dyspnea. O2 demand increased to 10l/min via midflow w/ Pox improved to 95%. RR 35. Morphine give as ordered prn w/o improvement in symptoms. Pt w/ decreased urine output this shift. Bladder scan= 57ml. Levophed gtt now up to
10mcg/min to keep MAP >65. TT to Dr Healy (cross-coverage) w/ update in pt's condition now requiring Levophed at 10mcg/min. Pt to be upgraded to ICU level of care. Dr Marks on unit and updated on Levophed dose requirement, O2 requirement,
increased WOB, and decreased urine output. Labs ordered stat. Pt's at bedside. Emotional support provided to pt and family.
[2025-02-06 18:38] LABS: B.E. -5.7 mmol/L; HCO3 19.2 mmol/L (21-28); O2 Saturation % 97.1 % (94-98); PCO2 34 mmHg (32-35); PO2 73 mmHg (83-108)
[2025-02-06 18:44] LABS: Hematocrit 21.1 % (37.0-47.0); Hemoglobin 7.1 g/dL (12.0-16.0); Mean Corp Hgb Conc. 33.6 g/dL (33.0-37.0); Mean Corpuscular Volume 87.6 fL (81.0-99.0); Platelet Count 28 10^3/uL (130-400); Red Cell Dist. Width 14.0 % (11.5-14.5)
[2025-02-06 18:46] LABS: INR 3.49; PT 35.3 Sec (11.4-14.6)
[2025-02-06 18:47] LABS: APTT 60.4 Sec (23.4-35.0)
[2025-02-06 19:09] LABS: Blood Urea Nitrogen 43 mg/dl (7-17); Calcium 8.4 mg/dl (8.4-10.2); Carbon Dioxide 24 mmol/L (22-30); Chloride 100 mmol/L (98-107); Estimated Creatinine Clearance 43 ml/min; Glucose 159 mg/dl (70-99); Magnesium 2.3 mg/dl (1.6-2.3); Potassium 3.8 mmol/L (3.5-5.1); Sodium 130 mmol/L (135-145); eGFR 31.01
[2025-02-06 19:27] LABS: Absolute Neutrophils -Man Diff 3.5 10^3/uL (1.4-6.5); Normal RBC Morphology Yes; Platelets Checked Yes; Total Cells Counted 100
[2025-02-06] MEDS: NEO-SYNEPHRINE 250 IV (19:35)
[2025-02-06] MEDS: DECADRON 2 MG IV (19:56)
[2025-02-06] MEDS: NEURONTIN PO (20:17)
--- NOTE | 2025-02-06 20:44 | W.PN.UPDATE ---
Update Note
Progress Note Update
2044 Discussed plan of care with patient's and decision was made to transition to comfort care.
[2025-02-06] MEDS: VALIUM INJECTION 5 MG IV (21:04)
--- NOTE | 2025-02-06 21:36 | PTCARENOTE ---
Pt with low BP, received pt on 14 mcgs of levo. ICU SCHOOL OCCUPATIONAL THERAPIST notified, Olvin gtt added. Lab results reviewed with the . Pt temp 102, cooling blanket in place. and family discussed plan of care, wishes to make pt comfortable. Cooling blanket
turned off. ICU SCHOOL OCCUPATIONAL THERAPIST in to speak with the family. Per families wishes they want to make the pt comfortable. Levo and olvin gtts turned off. Pt states she is anxious and SOB, Valium and morphine given (see MAR). Safe environment maintained. Emotional
support provided.
--- NOTE | 2025-02-06 21:52 | W.PN.DEATH ---
Pronouncement of
-
Called to see patient to pronounce.
No spontaneous heart tones or respirations noted.
Patient not responsive to verbal stimuli.
Patient is pronounced .
Time of : 21:45
Date of : 02/06/25
Cause of : Septic shock due to aspiration, metastatic melanoma
Family Notified: Yes
--- NOTE | 2025-02-06 23:01 | PTCARENOTE ---
Pt was asystole on the monitor. ICU YIELD LOSS INSPECTOR pronounced pt at 2145. Family at bedside.
--- NOTE | 2025-02-07 00:24 | PTCARENOTE ---
[place] [facility] [place]
--- NOTE | 2025-02-07 06:37 | W.DCSUMMARY ---
Documented by User: Lucila Durham MD 02/07/25 06:37
Discharge Summary
Discharge Data
Date of Admission: 02/03/25
Date of Discharge: 02/07/25
-
Pending Results: No
Discharge Plan
-
Patient Disposition:
Date/Time
Date/Time: 02/06/25 21:45
Discharge Date and Time
Discharge Date/Time: 02/06/25 21:45
Print Language: TRINIDADIAN

Documented by User: Ish Castro MD 02/08/25 08:28
Discharge Summary
Discharge Data
Date of Admission: 02/03/25
Date of Discharge: 02/06/25
Hospital Course
This is summary Mrs. Tracee Lundy who on 02/06/[id number]
List of hospital diagnosis:
Septic shock secondary aspiration pneumonia
Acute hypoxic respiratory failure
Metastatic melanoma
Pancytopenia
Hyperglycemia
History of pulmonary embolism
Hypokalemia
Nonsustained ventricular tachycardia
Hospital course
Patient is a 44-year-old female with history of recurrent metastatic melanoma came to ER with new onset of chest weakness and fall/dizziness at home. Patient was diagnosed with recurrence of melanoma with diffuse metastasis to axial/appendicular
skeleton/lungs and lymph node. Patient had recent admission at outside hospital for pathological lumbar spinal fracture for which patient underwent spinal fusion, postprocedure patient had developed pulmonary embolism and patient was started on
Eliquis. This visit hospital was prompted from ongoing generalized weakness and fall which started after patient got immunotherapy 1 week before. In ER rapid evaluation showing patient tachycardic. Patient had some cytopenia on CBC. BMP showing
patient having significant hypercalcemia with calcium elevated to 15.6. Patient got dose of zoledronic acid and calcitonin in ER. Patient was started on IV hydration and was admitted for further monitoring for hypercalcemia. Nephrology was
involved in care. Vitamin D level were checked and was low, PTH level was within normal limit. Patient calcium level normalized after 48 hours.
Patient had some associated acute kidney injury which improved with IV hydration. Although patient started developing signs of volume overload and IVF was discontinued.
Postadmission patient had episode of aspiration when patient choked on liquid. Chest x-ray was done which mainly showed pulmonary metastatic disease. Patient started to developing new high-grade fever and also was doubling pancytopenia. Patient
was considered to having sepsis from aspiration pneumonia. Patient was started on broad-spectrum antibiotic although allergic reaction to Zosyn. Infectious disease physician were involved and antibiotics were adjusted to Vanco and cefepime.
Patient continued to have clinical deterioration and started to developing signs of shock. Patient was transferred to medical ICU and required to be started on small dose of vasopressors. Patient follow-up CT chest showing extensive diffuse
pulmonary metastatic disease with right-sided pneumonia and surrounding pleural effusion. In light of clinical retrograding condition patient had agreed to be switched to DNR status. Patient clinical condition continued to decline. After
discussion with family patient was switched to comfort care patient on comfort care on 02/06/25. Patient was pronounced by house nurse provider.
Discharge Plan
-
Patient Disposition:
Date/Time
Date/Time: 02/06/25 21:45
Discharge Date and Time
Discharge Date/Time: 02/06/25 21:45
Print Language: TRINIDADIAN
--- NOTE | 2025-02-07 09:20 | CM ---
Patient on 02/06/25 @ 21:45.
[2025-02-09 09:43] LABS: PTH Related Peptide LC-MS/MS 6.1 pmol/L (0.0-3.4)
== END 2025-02-06 21:45 | disposition expired | DRG 640 ==
LOC: ICU 20:16
PROVIDERS: Emergency Medicine; Family Medicine; General Practice; Hospitalist; Internal Medicine Critical Care Medicine; Nurse Practitioner Family; Registered Nurse; ADMITTING PHYSICIAN Internal Medicine; ATTENDING PHYSICIAN Hospitalist; CONSULT PHYSICIAN Student in an Organized Health Care Education/Training Program; EMERGENCY PHYSICIAN Student in an Organized Health Care Education/Training Program; FAMILY PHYSICIAN Physician Assistant Medical; OTHER PHYSICIAN Internal Medicine; OTHER PHYSICIAN Internal Medicine Hematology & Oncology
PROC: 30233N1 Transfusion of Nonautologous Red Blood Cells into Peripheral Vein, Percutaneous Approach (ICD-10-PCS; 2025-02-05)
DX: E83.52 Hypercalcemia (principal); A41.9 Sepsis, unspecified organism; J69.0 Pneumonitis due to inhalation of food and vomit; J96.01 Acute respiratory failure with hypoxia; R65.21 Severe sepsis with septic shock; C78.7 Secondary malignant neoplasm of liver and intrahepatic bile duct; C79.51 Secondary malignant neoplasm of bone; D61.818 Other pancytopenia; E87.1 Hypo-osmolality and hyponatremia; E87.4 Mixed disorder of acid-base balance; N17.9 Acute kidney failure, unspecified; C43.9 Malignant melanoma of skin, unspecified; E87.6 Hypokalemia; Z79.01 Long term (current) use of anticoagulants; R29.6 Repeated falls; Z11.52 Encounter for screening for COVID-19
CPT/HCPCS: 36600; 70450; 71045; 71046; 71250; 80048; 80053; 80202; 82040; 82306; 82330; 82550; 82805; 83519; 83605; 83735; 83880; 83970; 84100; 84439; 84443; 85014; 85018; 85025; 85027; 85610; 85730; 86850; 86900; 86901; 86920; 87040; 87502; 87641; 87811; 92526; 92610; 93005; 94640; 96361; 96374; 96375; 99285; J0630; J3489; P9016